=== PATIENT | female | born 1955 | race Caucasian/White ===

== ENCOUNTER 2017-02-18 12:50 | Emergency (ER) | payer BC, MEDICARE ==
[2017-02-18] MEDS ORDERED: Ondansetron 4 MG/2 ML SDV IVPUSH ONE (13:36)
[2017-02-18] MEDS ORDERED: HYDROmorphone 0.5 MG/0.5 ML Syringe IVPUSH ONE ×2 (13:36→16:35)
[2017-02-18] MEDS ORDERED: Sodium Chloride 0.9% 1,000 ML IV ONE ×2 (13:37→16:09)
--- NOTE | 2017-02-18 13:38 | EDM.PDOC ---
ED HPI SEPSIS - General Chief Complaint: Fever Stated Complaint: FEVER/ POSS. POST SURGICAL ISSUES Time Seen by Provider: 02/18/17 13:28 Source of Information: Reports: Patient History Limitations: Reports: No limitations - History of Present Illness INITIAL COMMENTS - FREE TEXT/NARRATIVE: 61 year old female presents for evaluation and treatment a fever and nausea. Patient reports that the fever began last night around 2 AM. She states that she had a fever of 102 at home. Patient did take some Tylenol with Codeine for her chest pain about 3 hours prior to arrival in the ER. Current symptoms include fevers, chills, cough, nausea, pain to the chest, under arms and back. She denies any vomiting, diarrhea, urinary symptoms or abdominal pain. Patient reports a minor nonproductive cough. Patient had a bilateral mastectomy on February 01, with Dr. Cherry in [place]. Reconstruction done with Dr. Kathleen in [place]. Patient currently has DILMA drains in place. Has been draining about 30 cc of serous fluid twice a day. Masectomy was for breast cancer in the left breast. Lymph nodes to the left axilla also taken. Follow-up scheduled for Ira Wu. - Related Data Allergies/ADRs: Allergies Allergy/AdvReac Type Severity Reaction Status Date / Time diphenhydramine Allergy Airway Verified 02/18/17 13:05 [From Benadryl] Tightness Home Meds: Home Meds Escitalopram [Lexapro] 10 mg PO DAILY 02/18/17 [History] Memantine HCl [Namenda] 7 mg PO DAILY 02/18/17 [History] Omeprazole Magnesium [Prilosec Otc] 20 mg PO DAILY 02/18/17 [History] Tylenol Codeine 1 tab PO Q6H PRN 02/18/17 [History] Zolpidem [Ambien] 10 mg PO BEDTIME 02/18/17 [History] atorvaSTATin [Lipitor] 10 mg PO DAILY 02/18/17 [History] buPROPion HCl [Wellbutrin Xl] 300 mg PO DAILY 02/18/17 [History] Past Medical History HEENT History: Reports: Cataract Cardiovascular History: Reports: High cholesterol Gastrointestinal History: Reports: Chronic diarrhea, GERD Musculoskeletal History: Reports: Osteoarthritis Psychiatric History: Reports: Anxiety, Depression Oncologic (Cancer) History: Reports: Breast Other Oncologic History: double mastectomy - Past Surgical History GI Surgical History: Reports: Colonoscopy Female Surgical History: Reports: Other (see below) Other Female Surgeries/Procedures: partial hysterectomy Social & Family History - Tobacco Use Smoking Status *Q: Former Smoker Used Tobacco, but Quit: Yes Month Tobacco Last Used: 2 - Caffeine Use Caffeine Use: Reports: Coffee, Soda - Recreational Drug Use Recreational Drug Use: No ED ROS GENERAL - Review of Systems Review Of Systems: See Below Constitutional: Reports: fever, weakness Respiratory: Reports: Cough. Denies: Sputum GI/Abdominal: Reports: Nausea. Denies: Abdominal pain, Diarrhea, Vomiting : Reports: no symptoms. Denies: dysuria Musculoskeletal: Reports: back pain ED EXAM, SEPSIS - Physical Exam Exam: See Below Exam Limited By: No limitations General Appearance: alert, WD/WN, no apparent distress Throat/Mouth: Normal inspection, Normal lips, Normal voice, No airway compromise Respiratory/Chest: no respiratory distress, lungs clear Cardiovascular: normal peripheral pulses, no murmur, tachycardia Peripheral Pulses: 2+: radial (L), radial (R), posterior tibial (L), posterior tibial (R), dorsalis pedis (L), dorsalis pedis (R) GI/Abdominal: normal bowel sounds, soft, non tender Neurological: alert, oriented, normal cognition Psychiatric: normal affect, normal mood Skin: Dry, Increased warmth, Other (multiple healing incisions from recent surgery, minmal erythema surrounding the incisions; no pus or draininage from the incisions; DILMA drains contain serous fluid no pus appreciated; ) Course - Vital Signs Last Recorded V/S: Last Vital Signs Temp 38.1 C 02/18/17 12:59 Pulse 108 H 02/18/17 13:28 Resp 24 H 02/18/17 13:28 BP 124/45 L 02/18/17 13:28 Pulse Ox - Orders/Labs/Meds Orders: Active Orders 24 hr Category Date Time Status Cardiac Monitoring [RC] . DIRECTED Care 02/18/17 13:36 Active Peripheral IV Care [RC] . DIRECTED Care 02/18/17 13:50 Ordered CULTURE BLOOD [BC] Stat Lab 02/18/17 13:36 Ordered CULTURE BLOOD [BC] Stat Lab 02/18/17 13:36 Ordered CULTURE URINE [RM] Stat Lab 02/18/17 13:36 Uncollected Sodium Chloride 0.9% [Normal Saline] 1,000 ml Med 02/18/17 16:09 Ordered IV ONETIME Sodium Chloride 0.9% [Saline Flush] Med 02/18/17 13:50 Ordered 10 ml FLUSH ASDIRECTED PRN Vancomycin [Vancocin] 1 gm Med 02/18/17 15:29 Ordered Sodium Chloride 0.9% [Normal Saline] 250 ml IV ONETIME Blood Culture x2 Reflex Set [OM.PC] Stat Oth 02/18/17 13:36 Ordered Peripheral IV Insertion Adult [OM.PC] Routine Oth 02/18/17 13:50 Ordered Medication Orders Vancomycin HCl 1 gm/ Sodium (Chloride) 250 mls @ 250 mls/hr IV ONETIME ONE Stop: 02/18/17 16:28 Last Admin: 02/18/17 15:37 Dose: 250 mls/hr Sodium Chloride (Normal Saline) 1,000 mls @ 999 mls/hr IV ONETIME ONE Stop: 02/18/17 17:09 Sodium Chloride (Saline Flush) 10 ml FLUSH ASDIRECTED PRN PRN Reason: Keep Vein Open Last Admin: 02/18/17 14:00 Dose: 10 ml Labs: Laboratory Tests 02/18/17 02/18/17 02/18/17 Range/Units 14:05 14:05 14:05 WBC 41.94 H (3.98-10.04) K/mm3 RBC 3.72 L (3.98-5.22) M/mm3 Hgb 11.6 (11.2-15.7) gm/L Hct 37.2 (34.1-44.9) % MCV 100.0 H (79.4-94.8) fl MCH 31.2 (25.6-32.2) pg MCHC 31.2 L (32.2-35.5) g/dl RDW Std Deviation 48.3 H (36.4-46.3) fL Plt Count 170 L (182-369) K/mm3 MPV 12.4 H (9.4-12.3) fl Neutrophils % (Manual) 82 H (40-60) % Band Neutrophils % 1 (0-10) % Lymphocytes % (Manual) 2 L (20-40) % Atypical Lymphs % 1 % Monocytes % (Manual) 12 H (2-10) % Eosinophils % (Manual) 0 L (0.7-5.8) % Basophils % (Manual) 0 L (0.1-1.2) Myelocytes % 2 Platelet Estimate Adequate Plt Morphology Comment Normal Poikilocytosis 1+ slight Anisocytosis 1+ slight Microcytosis 1+ slight Macrocytosis 1+ slight Tear Drop Cells 1+ slight Ovalocytes 1+ slight RBC Morph Comment Abnormal Sodium 137 (136-145) mEq/L Potassium 4.1 (3.5-5.1) mEq/L Chloride 103 (98-107) mEq/L Carbon Dioxide 25 (21-32) mEq/L Anion Gap 13.1 (5-15) BUN 9 (7-18) mg/dL Creatinine 0.9 (0.55-1.02) mg/dL Est Cr Clr Drug Dosing 54.99 mL/min Estimated GFR (MDRD) > 60 (>60) mL/min BUN/Creatinine Ratio 10.0 L (14-18) Glucose 108 H (74-106) mg/dL Lactic Acid 1.3 (0.4-2.0) mmol/L Calcium 8.4 L (8.5-10.1) mg/dL Total Bilirubin 0.5 (0.2-1.0) mg/dL AST 12 L (15-37) U/L ALT 17 (14-59) U/L Alkaline Phosphatase 75 (46-116) U/L C-Reactive Protein 2.8 H* (<1.0) mg/dL B-Natriuretic Peptide (0-100) pg/mL Total Protein 6.5 (6.4-8.2) g/dl Albumin 3.1 L (3.4-5.0) g/dl Globulin 3.4 gm/dL Albumin/Globulin Ratio 0.9 L (1-2) Urine Color (Yellow) Urine Appearance (Clear) Urine pH (5.0-8.0) Ur Specific [place] (1.005-1.030) Urine Protein (Negative) Urine Glucose (UA) (Negative) Urine Ketones (Negative) Urine Occult Blood (Negative) Urine Nitrite (Negative) Urine Bilirubin (Negative) Urine Urobilinogen (0.2-1.0) Ur Leukocyte Esterase (Negative) Urine RBC (0-5) /hpf Urine WBC (0-5) /hpf Urine WBC Clumps (NOT SEEN) /hpf Ur Epithelial Cells (0-5) /hpf Urine Bacteria (FEW) /hpf Urine Mucus (FEW) /hpf Urine Yeast (NOT SEEN) 02/18/17 02/18/17 Range/Units 14:05 14:50 WBC (3.98-10.04) K/mm3 RBC (3.98-5.22) M/mm3 Hgb (11.2-15.7) gm/L Hct (34.1-44.9) % MCV (79.4-94.8) fl MCH (25.6-32.2) pg MCHC (32.2-35.5) g/dl RDW Std Deviation (36.4-46.3) fL Plt Count (182-369) K/mm3 MPV (9.4-12.3) fl Neutrophils % (Manual) (40-60) % Band Neutrophils % (0-10) % Lymphocytes % (Manual) (20-40) % Atypical Lymphs % % Monocytes % (Manual) (2-10) % Eosinophils % (Manual) (0.7-5.8) % Basophils % (Manual) (0.1-1.2) Myelocytes % Platelet Estimate Plt Morphology Comment Poikilocytosis Anisocytosis Microcytosis Macrocytosis Tear Drop Cells Ovalocytes RBC Morph Comment Sodium (136-145) mEq/L Potassium (3.5-5.1) mEq/L Chloride (98-107) mEq/L Carbon Dioxide (21-32) mEq/L Anion Gap (5-15) BUN (7-18) mg/dL Creatinine (0.55-1.02) mg/dL Est Cr Clr Drug Dosing mL/min Estimated GFR (MDRD) (>60) mL/min BUN/Creatinine Ratio (14-18) Glucose (74-106) mg/dL Lactic Acid (0.4-2.0) mmol/L Calcium (8.5-10.1) mg/dL Total Bilirubin (0.2-1.0) mg/dL AST (15-37) U/L ALT (14-59) U/L Alkaline Phosphatase (46-116) U/L C-Reactive Protein (<1.0) mg/dL B-Natriuretic Peptide 24 (0-100) pg/mL Total Protein (6.4-8.2) g/dl Albumin (3.4-5.0) g/dl Globulin gm/dL Albumin/Globulin Ratio (1-2) Urine Color Yellow (Yellow) Urine Appearance Clear (Clear) Urine pH 8.5 H (5.0-8.0) Ur Specific [place] 1.020 (1.005-1.030) Urine Protein 1+ H (Negative) Urine Glucose (UA) Negative (Negative) Urine Ketones Negative (Negative) Urine Occult Blood Negative (Negative) Urine Nitrite Negative (Negative) Urine Bilirubin Negative (Negative) Urine Urobilinogen 1.0 (0.2-1.0) Ur Leukocyte Esterase Negative (Negative) Urine RBC 0-5 (0-5) /hpf Urine WBC 0-5 (0-5) /hpf Urine WBC Clumps Not seen (NOT SEEN) /hpf Ur Epithelial Cells 0-5 (0-5) /hpf Urine Bacteria Few (FEW) /hpf Urine Mucus Not seen (FEW) /hpf Urine Yeast Not seen (NOT SEEN) Meds: Medications Generic Name Dose Route Start Last Admin Trade Name Freq PRN Reason Stop Dose Admin Vancomycin HCl 1 gm/ Sodium 250 mls @ 250 mls/hr 02/18/17 15:29 02/18/17 15: 37 Chloride IV 02/18/17 16:28 250 mls/hr ONETIME ONE Administration Sodium Chloride 1,000 mls @ 999 mls/hr 02/18/17 16:09 Normal Saline IV 02/18/17 17:09 ONETIME ONE Sodium Chloride 10 ml 02/18/17 13:50 02/18/17 14:00 Saline Flush FLUSH 10 ml ASDIRECTED PRN Administration Keep Vein Open Discontinued Medications Generic Name Dose Route Start Last Admin Trade Name Freq PRN Reason Stop Dose Admin Acetaminophen 650 mg 02/18/17 16:09 Tylenol PO 02/18/17 16:10 NOW ONE Hydromorphone HCl 0.5 mg 02/18/17 13:36 02/18/17 14:17 Dilaudid IVPUSH 02/18/17 13:37 0.5 mg ONETIME ONE Administration Sodium Chloride 1,000 mls @ 999 mls/hr 02/18/17 13:37 02/18/17 14:19 Normal Saline IV 02/18/17 14:37 999 mls/hr ONETIME ONE Administration Ceftriaxone Sodium 2 gm/ 100 mls @ 200 mls/hr 02/18/17 14:30 02/18/17 14:51 Sodium Chloride IV 02/18/17 14:59 200 mls/hr ONETIME ONE Administration Ondansetron HCl 4 mg 02/18/17 13:36 02/18/17 14:15 Zofran IVPUSH 02/18/17 13:37 4 mg ONETIME ONE Administration - Radiology Interpretation Free Text/Narrative:: chest 2 view some slight congestion and pulmonary fibrosis. Reviewed by myself and Dr. Chambers. No acute consolidation appreciated. CT Results Date: 02/18/17 - Re-Assessments/Exams Free Text/Narrative Re-Assessment/Exam: 02/18/17 14:51 Labs returned WBC is elevated at 41.94 with 1% bands, hgb is 11.6 and plts are 170 CRP is elevated at 2.8 BNP is normal at 24 UA has 1+ protein, no leuks or nitrites - urine was sent for culture. Sodium is 137, potassium is 4.1 and chloride is 103. Anion gap is 13.1 and glucose is 108 lactic acid is 1.[address] Chambers. Will start 2grmas rocephin and 1gram vancomycin. Plan is to transfer to [place]. Patient had surgery at [facility] in [place] with Dr. Cherry. Discussed with patient. She agrees to this plan. Pain control is good. No nausea at this time. 02/18/17 16:21 vitals at this time: temp 100.3 b/p 102/36 HR 1900 R: 18 O2 99% on 2L Case discussed with Dr. Brunson, hospitalist at [facility]. Accepts the patient in transfer. Will go by ground ambulance to [facility] in [place]. Departure - Departure Time of Disposition: 16:26 Disposition: DC/Tfer to Acute Hospital 02 Condition: serious Clinical Impression: Sepsis Forms: ED Department Discharge Additional Instructions: Transfer to [facility]. Dr. Brunson accepting. - My Orders Last 24 Hours: My Active Orders 02/18/17 13:36 Cardiac Monitoring [RC] . DIRECTED CULTURE BLOOD [BC] Stat CULTURE BLOOD [BC] Stat CULTURE URINE [RM] Stat Blood Culture x2 Reflex Set [OM.PC] Stat 02/18/17 13:50 Peripheral IV Care [RC] . DIRECTED Sodium Chloride 0.9% [Saline Flush] 10 ml FLUSH ASDIRECTED PRN Peripheral IV Insertion Adult [OM.PC] Routine 02/18/17 15:29 Vancomycin [Vancocin] 1 gm Sodium Chloride 0.9% [Normal Saline] 250 ml IV ONETIME 02/18/17 16:09 Sodium Chloride 0.9% [Normal Saline] 1,000 ml IV ONETIME - Assessment/Plan Last 24 Hours: My Active Orders 02/18/17 13:36 Cardiac Monitoring [RC] . DIRECTED CULTURE BLOOD [BC] Stat CULTURE BLOOD [BC] Stat CULTURE URINE [RM] Stat Blood Culture x2 Reflex Set [OM.PC] Stat 02/18/17 13:50 Peripheral IV Care [RC] . DIRECTED Sodium Chloride 0.9% [Saline Flush] 10 ml FLUSH ASDIRECTED PRN Peripheral IV Insertion Adult [OM.PC] Routine 02/18/17 15:29 Vancomycin [Vancocin] 1 gm Sodium Chloride 0.9% [Normal Saline] 250 ml IV ONETIME 02/18/17 16:09 Sodium Chloride 0.9% [Normal Saline] 1,000 ml IV ONETIME
[2017-02-18] MEDS ORDERED: Sodium Chloride 0.9% 10 ML Syringe FLUSH PRN (13:50)
[2017-02-18] MEDS ORDERED: cefTRIAXone 2 GM in Sodium Chloride 0.9% 100 ML IV ONE (14:30)
--- NOTE | 2017-02-18 15:28 | CR ---
Chest: Two views of the chest were obtained. Comparison: No previous chest x-ray. Heart is enlarged. Pulmonary markings are increased. No alveolar type densities are seen. Surgical clips are seen within the right breast/axillary region. Infusion catheter is seen entering from the left side. Bony structures are within normal limits for the patient's age. Impression: 1. Cardiomegaly with increased pulmonary markings. Pulmonary markings could represent pulmonary vascular congestion although difficult to exclude superimposed bronchitis given that the patient has infectious symptoms. 2. Other incidental findings. Diagnostic code #3
[2017-02-18] MEDS ORDERED: Acetaminophen 325 MG Tab PO ONE (16:09)
[2017-02-18 17:16] VITALS: BP 97/42
== END 2017-02-18 16:45 ==
LOC: JD.ED 12:50
DX: A41.9 Sepsis, unspecified organism (principal); I51.7 Cardiomegaly; Z90.13 Acquired absence of bilateral breasts and nipples; Z88.8 Allergy status to other drugs, medicaments and biological substances; Z79.899 Other long term (current) drug therapy; E78.00 Pure hypercholesterolemia, unspecified; K21.9 Gastro-esophageal reflux disease without esophagitis; M19.90 Unspecified osteoarthritis, unspecified site; F32.9 Major depressive disorder, single episode, unspecified; F41.9 Anxiety disorder, unspecified; Z85.3 Personal history of malignant neoplasm of breast; Z87.891 Personal history of nicotine dependence
CPT/HCPCS: 36415; 71020; 80053; 81001; 83605; 83880; 85025; 86140; 87040; 87086; 96365; 96367; 96375; 96376; 99285; A9270; J0696; J1170; J2405; J3370; J7030; J7040; J7050; 99284

== ENCOUNTER 2017-03-14 18:55 | Emergency (ER) | payer BC, MEDICARE ==
[2017-03-14 19:11] VITALS: BP 107/41
--- NOTE | 2017-03-14 19:38 | EDM.PDOC ---
ED HPI GENERAL MEDICAL PROBLEM - General Chief Complaint: Fever Stated Complaint: FEVER HEADACHE POSS INFECTION Time Seen by Provider: 03/14/17 19:12 Source of Information: Reports: Patient, Family (), Old Records, RN Notes Reviewed History Limitations: Reports: No Limitations - History of Present Illness INITIAL COMMENTS - FREE TEXT/NARRATIVE: The patient was diagnosed with left breast cancer in November 2016. Due to a strong family history of breast cancer, she underwent bilateral radical mastectomy 02/01/[address] Cherry at [facility] on 02/01/2017, followed by placement of bilateral expanders per Dr. Kathleen. She also received a left Port- A-Cath. The patient was seen in this ED 02/10/2017 for fever, nausea and pain to her left chest. She was found to have a WBC count substantially elevated at 41.94, but with only 1% bandemia. Her platelets were depressed at 170K. Her CMP was normal. Her CRP was modestly elevated at 2.8. Her lactic acid level was normal. Her urinalysis was normal. Her chest radiograph demonstrated cardiomegaly with increased pulmonary vascular markings, suggestive of CHF vs. bronchitis. the patient was treated with Rocephin and vancomycin, then transferred to [facility]. The patient's states that she was hospitalized for 12 days on IV antibiotics in order to treat an infected left hydrogen treater, which was removed. Her WBC count also apparently went up to about 68,000 despite antibiotics. She underwent a bone marrow biopsy to evaluate for CML - the patient states that they do not have those results back yet. The patient is no longer on antibiotics. She has not yet started chemotherapy. She now presents with nausea, lightheadedness, and a headache since 02:00 this morning. She states that these symptoms are recurrent, ever since her mastectomy on 02/01/2017. Her lightheadedness is only present when she is upright. She describes her headache as a pressure sensation in her face and in her posterior head. She also reports that she had a temperature of 99.9 at 02: 00, but that it went up to 101.1 at 13:00 this afternoon, as taken by a digital oral thermometer. She states that she took 650 mg Tylenol around 16:30. She also reports a dry cough and rhinorrhea since last night. She denies having left or right chest pain. Here in the ED, she is afebrile at 98.4. The patient's PCP is Dr. Cristina Wolf. Her Oncologist is Dr. Boles. Treatments ENERGY CONSERVATION REPRESENTATIVE: Reports: Acetaminophen Other Treatments ENERGY CONSERVATION REPRESENTATIVE: tylenol 650 mg one hour ago Headache Pain Score (Numeric/FACES): 2 - Related Data Allergies Allergy/AdvReac Type Severity Reaction Status Date / Time diphenhydramine Allergy Airway Verified 03/14/17 19:07 [From Benadryl] Tightness Home Meds: Home Meds Escitalopram [Lexapro] 10 mg PO DAILY 02/18/17 [History] Memantine HCl [Namenda] 7 mg PO DAILY 02/18/17 [History] Omeprazole Magnesium [Prilosec Otc] 20 mg PO DAILY 02/18/17 [History] Tylenol Codeine 1 tab PO Q6H PRN 02/18/17 [History] Zolpidem [Ambien] 10 mg PO BEDTIME 02/18/17 [History] atorvaSTATin [Lipitor] 10 mg PO DAILY 02/18/17 [History] buPROPion HCl [Wellbutrin Xl] 300 mg PO DAILY 02/18/17 [History] Past Medical History Cardiovascular History: Reports: High Cholesterol Gastrointestinal History: Reports: GERD Psychiatric History: Reports: Anxiety, Depression Oncologic (Cancer) History: Reports: Breast (left) - Past Surgical History HEENT Surgical History: Reports: Oral Surgery (All teeth extracted), Tonsillectomy Cardiovascular Surgical History: Reports: Other (See Below) (Left Port-A-Cath placed 02/01/2017) GI Surgical History: Reports: Appendectomy, Cholecystectomy Female Surgical History: Reports: Hysterectomy, Mastectomy (bilateral, 2016, + bilateral expanders. 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 Denies: Shortness of Breath Cardiovascular: Reports: No Symptoms. Denies: Chest Pain, Palpitations Endocrine: Reports: No Symptoms GI/Abdominal: Reports: Nausea (as per the HPI). Denies: Abdominal Pain, Constipation, Diarrhea, Vomiting : Reports: No Symptoms Musculoskeletal: Reports: No Symptoms Skin: Reports: No Symptoms Neurological: Reports: Dizziness (Lightheaded, as per the HPI) Psychiatric: Reports: No Symptoms Hematologic/Lymphatic: Reports: No Symptoms Immunologic: Reports: No Symptoms ED EXAM, GENERAL - Physical Exam Exam: See Below Exam Limited By: No Limitations General Appearance: Alert, WD/WN, No Apparent Distress, Anxious Eye Exam: Bilateral Eye: Normal Inspection Ears: Normal External Exam, Hearing Grossly Normal Ear Exam: Bilateral Ear: Auricle Normal Nose: Normal Inspection, No Blood Throat/Mouth: Normal Inspection, Normal Lips, Normal Voice, No Airway Compromise Head: Atraumatic, Normocephalic Neck: Normal Inspection, Full Range of Motion Respiratory/Chest: No Respiratory Distress, Lungs Clear, Normal Breath Sounds, No Accessory Muscle Use Cardiovascular: Normal Peripheral Pulses, Regular Rate, Rhythm, No Gallop, No JVD, No Murmur, No Rub Peripheral Pulses: 4+: Radial (L), Radial (R) GI/Abdominal: Normal Bowel Sounds, Soft, Non-Tender, No Organomegaly, No Distention, No Abnormal Bruit, No Mass (Female) Exam: Deferred Rectal (Female) Exam: Deferred Back Exam: Normal Inspection, Full Range of Motion, NT Extremities: Normal Inspection, Normal Range of Motion, No Pedal Edema, Normal Capillary Refill Neurological: Alert, Oriented, Normal Cognition, No Motor/Sensory Deficits Psychiatric: Normal Affect, Anxious Skin Exam: Warm, Dry, Intact, Normal Color, No Rash Lymphatic: No Adenopathy EKG INTERPRETATION EKG Date: 03/14/17 Time: 19:45 Rhythm: NSR Rate (beats/min): 98 [place]: LAD-left axis deviation P-wave: present QRS: normal ST-T: normal QT: normal Comparison: NA - no prior EKG Course - Vital Signs Last Recorded V/S: Last Vital Signs Temp 36.9 C 03/14/17 19:07 Pulse 100 03/14/17 19:07 Resp BP 107/41 L 03/14/17 19:07 Pulse Ox 96 03/14/17 19:07 Orthostatic Blood Pressure [ 95/41 Standing] Orthostatic Blood Pressure [ 106/38 Sitting] Orthostatic Blood Pressure [ 108/52 Supine] - Orders/Labs/Meds Orders: Active Orders 24 hr Category Date Time Status EKG Documentation Completion [RC] STAT Care 03/14/17 19:35 Active Orthostatic Vital Signs [RC] STAT Care 03/14/17 19:34 Active Orthostatic Vital Signs [RC] STAT Care 03/14/17 20:16 Active Chest 2V [CR] Stat Exams 03/14/17 19:34 Taken CULTURE BLOOD [BC] Stat Lab 03/14/17 20:35 Received CULTURE BLOOD [BC] Stat Lab 03/14/17 20:45 Received Labs: Laboratory Tests 03/14/17 03/14/17 03/14/17 Range/Units 19:45 19:45 19:45 WBC 47.07 H (3.98-10.04) K/mm3 RBC 3.71 L (3.98-5.22) M/mm3 Hgb 11.4 (11.2-15.7) gm/L Hct 37.5 (34.1-44.9) % MCV 101.1 H (79.4-94.8) fl MCH 30.7 (25.6-32.2) pg MCHC 30.4 L (32.2-35.5) g/dl RDW Std Deviation 50.5 H (36.4-46.3) fL Plt Count 168 L (182-369) K/mm3 MPV 12.5 H (9.4-12.3) fl Neutrophils % (Manual) 72 H (40-60) % Band Neutrophils % 0 (0-10) % Lymphocytes % (Manual) 5 L (20-40) % Atypical Lymphs % 0 % Monocytes % (Manual) 19 H (2-10) % Eosinophils % (Manual) 1 (0.7-5.8) % Basophils % (Manual) 0 L (0.1-1.2) Myelocytes % 3 Platelet Estimate Adequate Plt Morphology Comment Normal RBC Morph Comment Normal PT 11.1 (8.0-13.0) SECONDS INR 1.02 APTT 29 (22-36) SECONDS D-Dimer, Quantitative 0.56 (0.19-0.59) mg/L Sodium 140 (136-145) mEq/L Potassium 3.8 (3.5-5.1) mEq/L Chloride 104 (98-107) mEq/L Carbon Dioxide 27 (21-32) mEq/L Anion Gap 12.8 (5-15) BUN 11 (7-18) mg/dL Creatinine 1.1 H (0.55-1.02) mg/dL Est Cr Clr Drug Dosing 44.99 mL/min Estimated GFR (MDRD) 51 (>60) mL/min BUN/Creatinine Ratio 10.0 L (14-18) Glucose 98 (74-106) mg/dL Calcium 8.5 (8.5-10.1) mg/dL Magnesium 1.7 L (1.8-2.4) mg/dl Total Bilirubin 0.3 (0.2-1.0) mg/dL AST 13 L (15-37) U/L ALT 29 (14-59) U/L Alkaline Phosphatase 76 (46-116) U/L Troponin I < 0.017 (0.00-0.056) ng/mL C-Reactive Protein 3.7 H* (<1.0) mg/dL Total Protein 6.9 (6.4-8.2) g/dl Albumin 3.2 L (3.4-5.0) g/dl Globulin 3.7 gm/dL Albumin/Globulin Ratio 0.9 L (1-2) Urine Color (Yellow) Urine Appearance (Clear) Urine pH (5.0-8.0) Ur Specific [place] (1.005-1.030) Urine Protein (Negative) Urine Glucose (UA) (Negative) Urine Ketones (Negative) Urine Occult Blood (Negative) Urine Nitrite (Negative) Urine Bilirubin (Negative) Urine Urobilinogen (0.2-1.0) Ur Leukocyte Esterase (Negative) Urine RBC (0-5) /hpf Urine WBC (0-5) /hpf Ur Epithelial Cells Ur Squamous Epith Cells (0-5) /hpf Urine Bacteria (FEW) /hpf Urine Mucus (FEW) /hpf 03/14/17 Range/Units 20:23 WBC (3.98-10.04) K/mm3 RBC (3.98-5.22) M/mm3 Hgb (11.2-15.7) gm/L Hct (34.1-44.9) % MCV (79.4-94.8) fl MCH (25.6-32.2) pg MCHC (32.2-35.5) g/dl RDW Std Deviation (36.4-46.3) fL Plt Count (182-369) K/mm3 MPV (9.4-12.3) fl Neutrophils % (Manual) (40-60) % Band Neutrophils % (0-10) % Lymphocytes % (Manual) (20-40) % Atypical Lymphs % % Monocytes % (Manual) (2-10) % Eosinophils % (Manual) (0.7-5.8) % Basophils % (Manual) (0.1-1.2) Myelocytes % Platelet Estimate Plt Morphology Comment RBC Morph Comment PT (8.0-13.0) SECONDS INR APTT (22-36) SECONDS D-Dimer, Quantitative (0.19-0.59) mg/L Sodium (136-145) mEq/L Potassium (3.5-5.1) mEq/L Chloride (98-107) mEq/L Carbon Dioxide (21-32) mEq/L Anion Gap (5-15) BUN (7-18) mg/dL Creatinine (0.55-1.02) mg/dL Est Cr Clr Drug Dosing mL/min Estimated GFR (MDRD) (>60) mL/min BUN/Creatinine Ratio (14-18) Glucose (74-106) mg/dL Calcium (8.5-10.1) mg/dL Magnesium (1.8-2.4) mg/dl Total Bilirubin (0.2-1.0) mg/dL AST (15-37) U/L ALT (14-59) U/L Alkaline Phosphatase (46-116) U/L Troponin I (0.00-0.056) ng/mL C-Reactive Protein (<1.0) mg/dL Total Protein (6.4-8.2) g/dl Albumin (3.4-5.0) g/dl Globulin gm/dL Albumin/Globulin Ratio (1-2) Urine Color Yellow (Yellow) Urine Appearance Clear (Clear) Urine pH 5.5 (5.0-8.0) Ur Specific [place] > or = 1.030 (1.005-1.030) Urine Protein Trace H (Negative) Urine Glucose (UA) Negative (Negative) Urine Ketones Negative (Negative) Urine Occult Blood Negative (Negative) Urine Nitrite Negative (Negative) Urine Bilirubin 1+ H (Negative) Urine Urobilinogen 0.2 (0.2-1.0) Ur Leukocyte Esterase Trace H (Negative) Urine RBC Not seen (0-5) /hpf Urine WBC 5-10 H (0-5) /hpf Ur Epithelial Cells Not Reportable Ur Squamous Epith Cells 0-5 (0-5) /hpf Urine Bacteria Few (FEW) /hpf Urine Mucus Few (FEW) /hpf Meds: Medications Discontinued Medications Generic Name Dose Route Start Last Admin Trade Name Freq PRN Reason Stop Dose Admin Sodium Chloride 1,000 mls @ 150 mls/hr 03/14/17 19:45 Normal Saline IV ASDIRECTED LANA Sodium Chloride 1,000 mls @ 999 mls/hr 03/14/17 20:16 03/14/17 20:56 Normal Saline IV 03/14/17 21:16 999 mls/hr ONETIME ONE Administration Lidocaine/Tetracaine Confirm 03/14/17 20:09 03/14/17 20:53 Let Soln Administered 03/14/17 20:10 Not Given Dose 1 ml .ROUTE .STK-MED ONE Lidocaine/Tetracaine 1 ml 03/14/17 20:25 03/14/17 20:53 Let Soln TOP 03/14/17 20:26 1 ml ONETIME ONE Administration - Radiology Interpretation Free Text/Narrative:: Two-view chest radiograph reviewed. There is cardiomegaly. Mild pulmonary vascular congestion. No pleural effusions. No focal infiltrate. No pneumothorax. Left Port-A-Cath noted. Right breast hydrogen treater noted. Formal read per the Radiologist pending. CT of the head without contrast is read by Dr. Vega as: 1. Incidental sinus findings. 2. No acute intracranial abnormality is identified on noncontrast head CT study. - Re-Assessments/Exams Free Text/Narrative Re-Assessment/Exam: 03/14/17 20:15 The patient's diastolic blood pressure dropped 11 mm Hg from supine to standing. This constitutes orthostasis. I will order a 1 L normal saline bolus , then recheck her orthostatics. 03/14/17 22:31 Following 1 L normal saline, the patient is no longer orthostatic. 03/14/17 22:40 Test results discussed with the patient and her . Today's workup is remarkable for an elevated WBC count of 47.07, however, the patient recently underwent a bone marrow biopsy to evaluate for possible CML. She has 0% bandemia, and her CRP is only mildly elevated at 3.7, suggesting more of a viral illness, as opposed to a bacterial infection. Additionally, no focal site for bacterial infection was identified. I believe the patient can safely be discharged home, and she agrees. She was asking if I can prescribe something else for her nausea, but admits that she is not taking her Zofran as prescribed. I am recommending that she do so prior to switching to a different antiemetic. Departure - Departure Time of Disposition: 22:42 Disposition: Home, Self-Care 01 Condition: fair Clinical Impression: Nausea, Lightheaded, Orthostatic dizziness, Headache, Fever, Leukocytosis - Discharge Information Referrals: Cristina Wolf MD [Ordering Only Provider] - Amairani Boles MD [Ordering Only Provider] - Forms: ED Department Discharge Additional Instructions: You were seen in the emergency room for nausea, dizziness, headache, fever, cough, and runny nose. Workup in the ER included blood work, blood cultures, a urinalysis, an ECG, a chest x-ray, a CT scan of your head, and positional blood pressure checks. Your workup was remarkable for your WBC count being elevated at 47.07 and your platelets mildly depressed at 168K. your CRP is mildly elevated at 3.7. You were found to be orthostatic, relieved after he received 1 L of IV fluid. You do not have pneumonia. You do not have a urinary tract infection. You have not had a heart attack. You do not have a blood clot in your lungs. The CT scan of your head was normal. You may have a viral URI contribute to your symptoms. We recommend you followup with your PCP, Dr. Wolf, this week. If any other problems, please do not hesitate to return to the ER. - My Orders Last 24 Hours: My Active Orders 03/14/17 19:34 Orthostatic Vital Signs [RC] STAT Chest 2V [CR] Stat 03/14/17 19:35 EKG Documentation Completion [RC] STAT 03/14/17 20:16 Orthostatic Vital Signs [RC] STAT 03/14/17 20:35 CULTURE BLOOD [BC] Stat 03/14/17 20:45 CULTURE BLOOD [BC] Stat - Assessment/Plan Last 24 Hours: My Active Orders 03/14/17 19:34 Orthostatic Vital Signs [RC] STAT Chest 2V [CR] Stat 03/14/17 19:35 EKG Documentation Completion [RC] STAT 03/14/17 20:16 Orthostatic Vital Signs [RC] STAT 03/14/17 20:35 CULTURE BLOOD [BC] Stat 03/14/17 20:45 CULTURE BLOOD [BC] Stat
[2017-03-14] MEDS ORDERED: Sodium Chloride 0.9% 1,000 ML IV SCH (19:45)
[2017-03-14] MEDS ORDERED: Lidocaine/EPINEPHrine/Tetracaine Soln 1 ML ONE (20:09)
--- NOTE | 2017-03-14 20:12 | CT ---
Head CT Technique: Multiple axial sections through the brain were obtained. Intravenous contrast was not utilized. Comparison: No previous intracranial imaging is available. Findings: Ventricles along with basal cisterns and sulci over the convexities appear within normal limits for the patient's age. No abnormal parenchymal densities are appreciated. No evidence of intracranial hemorrhage. No midline shift or mass effect is seen. Bone window settings were reviewed which shows no discrete calvarial abnormality. Mild mucosal thickening is noted within the frontal sinuses. Impression: 1. Incidental sinus findings. 2. No acute intracranial abnormality is identified on noncontrast head CT study. Diagnostic code #2
[2017-03-14] MEDS ORDERED: Sodium Chloride 0.9% 1,000 ML IV ONE (20:16)
[2017-03-14] MEDS ORDERED: Lidocaine/EPINEPHrine/Tetracaine Soln 1 ML TOP ONE (20:25)
--- NOTE | 2017-03-15 11:41 | CR ---
Chest: Two views of the chest were obtained. Comparison: Previous chest x-ray of 02/18/17. Heart is enlarged. Chronic-appearing pulmonary vascular congestion is seen. Focal density noted within the left mid lung which is stable from prior exam and this is likely chronic. Infusion catheter is seen. Surgical clips are seen within the right axillary region. Bony structures appear within normal limits for the patient's age. Impression: 1. Enlarged heart with chronic-appearing pulmonary vascular congestion from prior exam. 2. Focal density within left mid lung which is fairly stable from prior study most likely chronic. 3. Other incidental findings. Diagnostic code #3
== END 2017-03-14 23:00 | disposition home or self-care (01) ==
LOC: JD.ED 18:55
DX: R42 Dizziness and giddiness (principal); R11.0 Nausea; R51 Headache; D72.829 Elevated white blood cell count, unspecified; E78.00 Pure hypercholesterolemia, unspecified; K21.9 Gastro-esophageal reflux disease without esophagitis; F41.9 Anxiety disorder, unspecified; F32.9 Major depressive disorder, single episode, unspecified; Z98.818 Other dental procedure status; Z88.8 Allergy status to other drugs, medicaments and biological substances; Z79.899 Other long term (current) drug therapy; Z90.49 Acquired absence of other specified parts of digestive tract; Z90.710 Acquired absence of both cervix and uterus; Z98.890 Other specified postprocedural states; Z87.891 Personal history of nicotine dependence
CPT/HCPCS: 36415; 70450; 71020; 80053; 81001; 83735; 84484; 85025; 85379; 85610; 85730; 86140; 87040; 93005; 96360; 99285; A9270; J7040; P9612; 87077; 87186; 99283

== ENCOUNTER 2017-05-05 08:51 | Emergency (ER) | payer BC, MEDICARE ==
[2017-05-05] MEDS ORDERED: Ondansetron 8 MG in Sodium Chloride 0.9% 50 ML IV ONE (09:17)
[2017-05-05] MEDS ORDERED: HYDROmorphone 1 MG/ML Syringe IVPUSH ONE (09:18)
[2017-05-05] MEDS ORDERED: Ondansetron 4 MG/2 ML SDV ONE (09:27)
[2017-05-05] MEDS ORDERED: Sodium Chloride 0.9% 2,000 ML IV SCH (09:30)
--- NOTE | 2017-05-05 10:57 | EDM.PDOC ---
ED HPI GENERAL MEDICAL PROBLEM - General Chief Complaint: Gastrointestinal Problem Stated Complaint: DEHYDRATED Time Seen by Provider: 05/05/17 09:03 Source of Information: Reports: Patient, Family History Limitations: Reports: No Limitations - History of Present Illness INITIAL COMMENTS - FREE TEXT/NARRATIVE: The patient presents with nausea, vomiting, diarrhea and lower abdominal pain. She has a history of breast cancer and possibly CML. She got chemotherapy last Tuesday 8 days ago. Yesterday she started with nausea, vomiting, diarrhea and lower abdominal cramping. She denies fever. She does have chills. She has a mild cough. She feels short of breath. She is very weak and fatigued. She was to get fluid today at the infusion center at [place] but when her called they told her to come here. She has no dysuria. Onset: Gradual Duration: Day(s): (Yesterday) Location: Reports: Abdomen Quality: Reports: Other (cramping) Severity: Moderate Improves with: Reports: None Worsens with: Reports: None Context: Reports: Activity Associated Symptoms: Reports: Cough, Fever/Chills, Loss of Appetite, Nausea/ Vomiting. Denies: Chest Pain Abdominal Pain Score (Numeric/FACES): 6 - Related Data Allergies Allergy/AdvReac Type Severity Reaction Status Date / Time diphenhydramine Allergy Airway Verified 05/05/17 09:04 [From Benadryl] Tightness Home Meds: Home Meds Escitalopram [Lexapro] 10 mg PO DAILY 02/18/17 [History] Memantine HCl [Namenda] 7 mg PO DAILY 02/18/17 [History] Omeprazole Magnesium [Prilosec Otc] 20 mg PO DAILY 02/18/17 [History] Tylenol Codeine 1 tab PO Q6H PRN 02/18/17 [History] Zolpidem [Ambien] 10 mg PO BEDTIME 02/18/17 [History] atorvaSTATin [Lipitor] 10 mg PO DAILY 02/18/17 [History] buPROPion HCl [Wellbutrin Xl] 300 mg PO DAILY 02/18/17 [History] Past Medical History HEENT History: Reports: Impaired Vision Cardiovascular History: Reports: High Cholesterol Respiratory History: Reports: SOB Gastrointestinal History: Reports: GERD Musculoskeletal History: Reports: Osteoarthritis Psychiatric History: Reports: Anxiety, Depression Oncologic (Cancer) History: Reports: Breast, Other (See Below) Other Oncologic History: "Checking me for CML" - Infectious Disease History Infectious Disease History: Reports: Chicken Pox, Mumps - Past Surgical History HEENT Surgical History: Reports: Oral Surgery, Tonsillectomy Other Cardiovascular Surgeries/Procedures: "attempted to place stent, but then didn't need to once they were in there." GI Surgical History: Reports: Appendectomy, Cholecystectomy Female Surgical History: Reports: Hysterectomy, Mastectomy Oncologic Surgical History: Reports: Mastectomy Social & Family History - Family History Family Medical History: Noncontributory - Tobacco Use Smoking Status *Q: Former Smoker Years of Tobacco use: 43 Packs/Tins Daily: 1 Used Tobacco, but Quit: Yes Month Tobacco Last Used: 2013 - Caffeine Use Caffeine Use: Reports: Coffee, Soda - Recreational Drug Use Recreational Drug Use: No - Living Situation & Occupation Living situation: Reports: , with Spouse 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 Denies: Chest Pain Endocrine: Reports: Fatigue GI/Abdominal: Reports: Abdominal Pain, Diarrhea, Nausea, Vomiting : Reports: No Symptoms Musculoskeletal: Reports: No Symptoms Skin: Reports: No Symptoms Neurological: Reports: Dizziness ED EXAM, GI/ABD - Physical Exam Exam: See Below Exam Limited By: No Limitations General Appearance: Alert, No Apparent Distress Ears: Normal External Exam Nose: Normal Inspection Head: Atraumatic, Normocephalic Neck: Normal Inspection Respiratory/Chest: No Respiratory Distress, Lungs Clear, Normal Breath Sounds Cardiovascular: Regular Rate, Rhythm, No Edema, No Murmur GI/Abdominal: Soft, No Organomegaly, No Mass, Tenderness (Mild pain upon palpation) Course - Vital Signs Last Recorded V/S: Last Vital Signs Temp 97.4 F 05/05/17 08:58 Pulse 93 05/05/17 08:58 Resp 28 H 05/05/17 08:58 BP 88/40 L 05/05/17 08:58 Pulse Ox 86 L 05/05/17 10:19 - Orders/Labs/Meds Orders: Active Orders 24 hr Category Date Time Status Cardiac Monitoring [RC] . DIRECTED Care 05/05/17 09:17 Active Implanted Port Access [RC] ONETIME Care 05/05/17 09:17 Active PATIENT RETYPE [BBK] Stat Lab 05/05/17 10:05 Results RED BLOOD CELLS LP [BBK] Stat Lab 05/05/17 10:05 Results TYPE AND SCREEN [BBK] Stat Lab 05/05/17 10:05 Results Sodium Chloride 0.9% [Normal Saline] 2,000 ml Med 05/05/17 09:30 Active IV .BOLUS ED Antiemetic Medication Reflex [OM.PC] Stat Oth 05/05/17 09:17 Ordered Transfuse PRBC [Transfuse Red Blood Cells] [COMM] Stat Oth 05/05/17 10:41 Ordered Medication Orders Sodium Chloride (Normal Saline) 2,000 mls @ 1,000 mls/hr IV .BOLUS LANA Last Admin: 05/05/17 10:05 Dose: 1,000 mls/hr Labs: Laboratory Tests 05/05/17 05/05/17 05/05/17 Range/Units 10:05 10:05 10:05 WBC 0.61 L* (3.98-10.04) K/mm3 RBC 2.00 L (3.98-5.22) M/mm3 Hgb 5.9 L* (11.2-15.7) gm/L Hct 19.1 L (34.1-44.9) % MCV 95.5 H (79.4-94.8) fl MCH 29.5 (25.6-32.2) pg MCHC 30.9 L (32.2-35.5) g/dl RDW Std Deviation 46.0 (36.4-46.3) fL Plt Count 42 L (182-369) K/mm3 MPV 12.4 H (9.4-12.3) fl Neut % (Auto) 31.2 L (34.0-71.1) % Lymph % (Auto) 32.8 (19.3-51.7) % [place] % (Auto) 24.6 H (4.7-12.5) % Eos % (Auto) 0 L (0.7-5.8) Baso % (Auto) 1.6 H (0.1-1.2) % Neut # (Auto) 0.19 L (1.56-6.13) K/mm3 Lymph # (Auto) 0.20 L (1.18-3.74) K/mm3 [place] # (Auto) 0.15 L (0.24-0.36) K/mm3 Eos # (Auto) 0.00 L (0.04-0.36) K/mm3 Baso # (Auto) 0.01 (0.01-0.08) K/mm3 Manual Slide Review Abnormal smear Sodium 136 (136-145) mEq/L Potassium 3.9 (3.5-5.1) mEq/L Chloride 102 (98-107) mEq/L Carbon Dioxide 26 (21-32) mEq/L Anion Gap 11.9 (5-15) BUN 7 (7-18) mg/dL Creatinine 0.7 (0.55-1.02) mg/dL Est Cr Clr Drug Dosing 69.81 mL/min Estimated GFR (MDRD) > 60 (>60) mL/min BUN/Creatinine Ratio 10.0 L (14-18) Glucose 94 (80-115) mg/dL Calcium 8.2 L (8.5-10.1) mg/dL Total Bilirubin 0.7 (0.2-1.0) mg/dL AST 9 L (15-37) U/L ALT 12 L (14-59) U/L Alkaline Phosphatase 70 (46-116) U/L Total Protein 5.4 L (6.4-8.2) g/dl Albumin 2.4 L (3.4-5.0) g/dl Globulin 3.0 gm/dL Albumin/Globulin Ratio 0.8 L (1-2) Lipase 70 L (73-393) U/L Urine Color (Yellow) Urine Appearance (Clear) Urine pH (5.0-8.0) Ur Specific [place] (1.005-1.030) Urine Protein (Negative) Urine Glucose (UA) (Negative) Urine Ketones (Negative) Urine Occult Blood (Negative) Urine Nitrite (Negative) Urine Bilirubin (Negative) Urine Urobilinogen (0.2-1.0) Ur Leukocyte Esterase (Negative) Urine RBC (0-5) /hpf Urine WBC (0-5) /hpf Ur Epithelial Cells (0-5) /hpf Urine Bacteria (FEW) /hpf Hyaline Casts (0-5) /lpf Urine Mucus (FEW) /hpf Blood Type A POSITIVE Gel Antibody Screen Negative Crossmatch See Detail 05/05/17 Range/Units 10:30 WBC (3.98-10.04) K/mm3 RBC (3.98-5.22) M/mm3 Hgb (11.2-15.7) gm/L Hct (34.1-44.9) % MCV (79.4-94.8) fl MCH (25.6-32.2) pg MCHC (32.2-35.5) g/dl RDW Std Deviation (36.4-46.3) fL Plt Count (182-369) K/mm3 MPV (9.4-12.3) fl Neut % (Auto) (34.0-71.1) % Lymph % (Auto) (19.3-51.7) % [place] % (Auto) (4.7-12.5) % Eos % (Auto) (0.7-5.8) Baso % (Auto) (0.1-1.2) % Neut # (Auto) (1.56-6.13) K/mm3 Lymph # (Auto) (1.18-3.74) K/mm3 [place] # (Auto) (0.24-0.36) K/mm3 Eos # (Auto) (0.04-0.36) K/mm3 Baso # (Auto) (0.01-0.08) K/mm3 Manual Slide Review Sodium (136-145) mEq/L Potassium (3.5-5.1) mEq/L Chloride (98-107) mEq/L Carbon Dioxide (21-32) mEq/L Anion Gap (5-15) BUN (7-18) mg/dL Creatinine (0.55-1.02) mg/dL Est Cr Clr Drug Dosing mL/min Estimated GFR (MDRD) (>60) mL/min BUN/Creatinine Ratio (14-18) Glucose (80-115) mg/dL Calcium (8.5-10.1) mg/dL Total Bilirubin (0.2-1.0) mg/dL AST (15-37) U/L ALT (14-59) U/L Alkaline Phosphatase (46-116) U/L Total Protein (6.4-8.2) g/dl Albumin (3.4-5.0) g/dl Globulin gm/dL Albumin/Globulin Ratio (1-2) Lipase (73-393) U/L Urine Color Irene H (Yellow) Urine Appearance Clear (Clear) Urine pH 6.5 (5.0-8.0) Ur Specific [place] 1.025 (1.005-1.030) Urine Protein 1+ H (Negative) Urine Glucose (UA) Negative (Negative) Urine Ketones Trace H (Negative) Urine Occult Blood 2+ H (Negative) Urine Nitrite Negative (Negative) Urine Bilirubin 1+ H (Negative) Urine Urobilinogen 0.2 (0.2-1.0) Ur Leukocyte Esterase Negative (Negative) Urine RBC 10-20 H (0-5) /hpf Urine WBC 0-5 (0-5) /hpf Ur Epithelial Cells 5-10 H (0-5) /hpf Urine Bacteria Few (FEW) /hpf Hyaline Casts 0-5 (0-5) /lpf Urine Mucus Many H (FEW) /hpf Blood Type Gel Antibody Screen Crossmatch Meds: Medications Generic Name Dose Route Start Last Admin Trade Name Queta PRN Reason Stop Dose Admin Sodium Chloride 2,000 mls @ 1,000 mls/hr 05/05/17 09:30 05/05/17 10:05 Normal Saline IV 1,000 mls/hr .BOLUS LANA Administration Discontinued Medications Generic Name Dose Route Start Last Admin Trade Name Queta PRN Reason Stop Dose Admin Hydromorphone HCl 1 mg 05/05/17 09:18 05/05/17 10:06 Dilaudid IVPUSH 05/05/17 09:19 1 mg ONETIME ONE Administration Ondansetron HCl 8 mg/ Sodium 54 mls @ 100 mls/hr 05/05/17 09:17 05/05/17 10: 15 Chloride IV 05/05/17 09:49 100 mls/hr ONETIME ONE Administration Ondansetron HCl Confirm 05/05/17 09:27 05/05/17 10:17 Zofran Administered 05/05/17 09:28 Not Given Dose 8 mg .ROUTE .STK-MED ONE - Re-Assessments/Exams Free Text/Narrative Re-Assessment/Exam: 05/05/17 10:58 I ordered an IV NS 2L bolus, zofran 4mg IV, dilaudid 1mg IV, labs and UA. 05/05/17 12:10 Her WBC was low at 0.61. I put her on neutropenic precautions. Her Hgb was low at 5.9. I ordered 2 units of PRBCs. Her platelets were low at 42. Her CMP looks good. Her UA shows no UTI. I called Dr Boles her oncologist at [facility] and she wanted us to give her the blood and she wanted her admitted to [facility] in [place]. I talked with Dr Brunson and he accepted the patient. Departure - Departure Time of Disposition: 12:20 Disposition: DC/[facility] to [facility] 02 Condition: Good Clinical Impression: Lightheaded, Pancytopenia due to chemotherapy Nausea & vomiting Qualifiers: Vomiting type: unspecified Vomiting Intractability: non-intractable Qualified Code(s): R11.2 - Nausea with vomiting, unspecified Diarrhea Qualifiers: Diarrhea type: unspecified type Qualified Code(s): R19.7 - Diarrhea, unspecified Abdominal pain Qualifiers: Abdominal location: lower abdomen, unspecified Qualified Code(s): R10.30 - Lower abdominal pain, unspecified Breast cancer Qualifiers: Breast location: unspecified site of breast Estrogen receptor status: unspecified Patient sex: female Laterality: left Qualified Code(s): C50.912 - Malignant neoplasm of unspecified site of left female breast - Discharge Information Forms: ED Department Discharge - My Orders Last 24 Hours: My Active Orders 05/05/17 09:17 Cardiac Monitoring [RC] . DIRECTED Implanted Port Access [RC] ONETIME ED Antiemetic Medication Reflex [OM.PC] Stat 05/05/17 09:30 Sodium Chloride 0.9% [Normal Saline] 2,000 ml IV .BOLUS 05/05/17 10:05 PATIENT RETYPE [BBK] Stat RED BLOOD CELLS LP [BBK] Stat TYPE AND SCREEN [BBK] Stat 05/05/17 10:41 Transfuse PRBC [Transfuse Red Blood Cells] [COMM] Stat - Assessment/Plan Last 24 Hours: My Active Orders 05/05/17 09:17 Cardiac Monitoring [RC] . DIRECTED Implanted Port Access [RC] ONETIME ED Antiemetic Medication Reflex [OM.PC] Stat 05/05/17 09:30 Sodium Chloride 0.9% [Normal Saline] 2,000 ml IV .BOLUS 05/05/17 10:05 PATIENT RETYPE [BBK] Stat RED BLOOD CELLS LP [BBK] Stat TYPE AND SCREEN [BBK] Stat 05/05/17 10:41 Transfuse PRBC [Transfuse Red Blood Cells] [COMM] Stat
[2017-05-05 12:42] VITALS: BP 96/50
== END 2017-05-05 13:05 ==
LOC: JD.ED 08:51
DX: R42 Dizziness and giddiness (principal); D61.811 Other drug-induced pancytopenia; R11.2 Nausea with vomiting, unspecified; R19.7 Diarrhea, unspecified; R10.30 Lower abdominal pain, unspecified; C50.912 Malignant neoplasm of unspecified site of left female breast; E78.00 Pure hypercholesterolemia, unspecified; K21.9 Gastro-esophageal reflux disease without esophagitis; F41.9 Anxiety disorder, unspecified; F32.9 Major depressive disorder, single episode, unspecified; M19.90 Unspecified osteoarthritis, unspecified site; Z79.899 Other long term (current) drug therapy; Z88.8 Allergy status to other drugs, medicaments and biological substances; Z90.49 Acquired absence of other specified parts of digestive tract; Z90.710 Acquired absence of both cervix and uterus; Z90.10 Acquired absence of unspecified breast and nipple; Z98.890 Other specified postprocedural states; Z87.891 Personal history of nicotine dependence
CPT/HCPCS: 36415; 36430; 80053; 81001; 83690; 85025; 86850; 86900; 86901; 86922; 96361; 96365; 96366; 96375; 99285; J1170; J2405; J7040; J7050; P9016; 99284

== ENCOUNTER 2017-07-11 17:57 | Emergency (ER) | payer BC, MEDICARE ==
[2017-07-11 18:19] VITALS: BP 114/38
[2017-07-11] MEDS ORDERED: Lidocaine 1% 10 ML MDV INJECT ONE (18:36)
--- NOTE | 2017-07-11 18:46 | EDM.PDOC ---
ED HPI GENERAL MEDICAL PROBLEM - General Chief Complaint: Laceration Stated Complaint: R HAND LAC Time Seen by Provider: 07/11/17 18:30 Source of Information: Reports: Patient History Limitations: Reports: No Limitations - History of Present Illness INITIAL COMMENTS - FREE TEXT/NARRATIVE: Patient is a 62-year-old female who was walking up a set of stairs lost her balance and fell accidentally cutting herself on a wall ornament. Patient denies LOC, head/neck/back pain. Laceration measures 3 cm to the lateral aspect of the right pinky finger. She has no sensorimotor deficits. Bleeding is minimal along with pain is minimal at this time. No other discomfort or complaints to the remaining fingers, hand, wrist, forearm, elbow, upper arm, or shoulder. Tetanus status is up-to-date. Of note she recently was just discharged from the hospital today in [place] for stage II breast cancer. Patient had extended hospitalization 2nd to multiple episodes of C. difficile. She was not released from the hospital until testing revealed resolution. She is on 2 different antibiotics at this point in fear that the Port-A-Cath is infected. She offers no additional c/o's at this time. Right 5-Little finger Pain Score (Numeric/FACES): 4 - Related Data Allergies Allergy/AdvReac Type Severity Reaction Status Date / Time diphenhydramine Allergy Airway Verified 07/11/17 18:14 [From Benadryl] Tightness Home Meds: Home Meds Escitalopram [Lexapro] 10 mg PO DAILY 02/18/17 [History] Memantine HCl [Namenda] 7 mg PO DAILY 02/18/17 [History] Omeprazole Magnesium [Prilosec Otc] 20 mg PO DAILY 02/18/17 [History] Zolpidem [Ambien] 10 mg PO BEDTIME 02/18/17 [History] atorvaSTATin [Lipitor] 10 mg PO DAILY 02/18/17 [History] buPROPion HCl [Wellbutrin Xl] 300 mg PO DAILY 02/18/17 [History] Antibiotic Pills 07/11/17 [History] Past Medical History HEENT History: Reports: Impaired Vision Cardiovascular History: Reports: High Cholesterol Respiratory History: Reports: SOB Gastrointestinal History: Reports: GERD Musculoskeletal History: Reports: Osteoarthritis Psychiatric History: Reports: Anxiety, Depression Oncologic (Cancer) History: Reports: Breast, Other (See Below) Other Oncologic History: "Checking me for CML" - Infectious Disease History Infectious Disease History: Reports: Chicken Pox, Mumps - Past Surgical History HEENT Surgical History: Reports: Oral Surgery, Tonsillectomy Other Cardiovascular Surgeries/Procedures: "attempted to place stent, but then didn't need to once they were in there." GI Surgical History: Reports: Appendectomy, Cholecystectomy Female Surgical History: Reports: Hysterectomy, Mastectomy Oncologic Surgical History: Reports: Mastectomy Social & Family History - Family History Family Medical History: Noncontributory - Tobacco Use Smoking Status *Q: Former Smoker Years of Tobacco use: 43 Packs/Tins Daily: 1 Used Tobacco, but Quit: Yes Month Tobacco Last Used: 4 yrs - Caffeine Use Caffeine Use: Reports: Soda, Tea - Recreational Drug Use Recreational Drug Use: No - Living Situation & Occupation Living situation: Reports: , with Spouse 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 ED EXAM, SKIN/RASH Exam: See Below Exam Limited By: No Limitations General Appearance: Alert, WD/WN, No Apparent Distress Ears: Hearing Grossly Normal Nose: Normal Inspection Throat/Mouth: Normal Voice, No Airway Compromise Neck: Normal Inspection Respiratory/Chest: No Respiratory Distress, No Accessory Muscle Use Cardiovascular: Normal Peripheral Pulses, Regular Rate, Rhythm Peripheral Pulses: 2+: Radial (R) Extremities: Other (3cm deep laceration to the right lateral pinky finger involving the proximal phalanx. Minimal bleeding. Full AROM present. No echycmosis, bony abnormalities, or pain to the remaining fingers, hand, wrist elbow. ) Neurological: Alert, Oriented, CN II-XII Intact, Normal Cognition, No Motor/ Sensory Deficits Psychiatric: Normal Affect, Normal Mood Skin: Warm, Dry, Normal Color ED SKIN PROCEDURES - Laceration/Wound Repair Right Lateral Finger Lac/Wound length In cm: 3 Appearance: Subcutaneous Distal NVT: Neuro & Vascular Intact, No Tendon Injury Anesthetic Type: Local Local Anesthesia - Lidocaine (Xylocaine): 1% Plain Local Anesthetic Volume: 3cc Skin Prep: Chlorhexidine (Hibiciens), Saline, Sterile Drape Exploration/Debridement/Repair: Wound Explored, In a Bloodless Field, Explored to Base, No Foreign Material Found Closed with: Sutures Suture Size: 4-0 # of Sutures: 7 Suture Type: Prolene, Interrupted, Simple Sterile Dressing Applied: Nurse Tetanus Status Addressed: Yes Complications: No Course - Vital Signs Last Recorded V/S: Last Vital Signs Temp 99.0 F 07/11/17 18:18 Pulse 98 07/11/17 18:18 Resp 20 07/11/17 18:18 BP 114/38 L 07/11/17 18:18 Pulse Ox 99 07/11/17 18:18 - Orders/Labs/Meds Meds: Medications Discontinued Medications Generic Name Dose Route Start Last Admin Trade Name Queta PRN Reason Stop Dose Admin Lidocaine HCl 10 ml 07/11/17 18:36 07/11/17 19:20 Xylocaine 1% INJECT 07/11/17 18:37 10 ml ONETIME ONE Administration - Re-Assessments/Exams Free Text/Narrative Re-Assessment/Exam: Ordered 1% lidocaine. Laceration closed with no complications. Discharge instructions as documented. Of note patient complained of swelling to the dorsal aspect of the left hand with mild pain.She was able to flex and extend all her fingers and wrist. Offered x-ray of the left hand. She refused. Departure - Departure Time of Disposition: 18:45 Disposition: Home, Self-Care 01 Condition: Good Clinical Impression: Laceration of finger Qualifiers: Encounter type: initial encounter Finger: little finger Damage to nail status: without damage Foreign body presence: without foreign body Laterality: right Qualified Code(s): S61.216A - Laceration without foreign body of right little finger without damage to nail, initial encounter - Discharge Information Instructions: Laceration Care, Adult, [id number] Referrals: Brigette Gomez, VEIN ACCESS TECHNICIAN [Primary Care Provider] - Forms: ED Department Discharge Additional Instructions: Cleanse site twice daily with soap and water, pat dry, reapply triple antibiotic ointment, and dressing. Apply ice to the affected area as needed. Followup with a provider at [facility] in [place] for suture removal in 7 to 10 days. Return to the E.D. for any new or worsening symptoms.
== END 2017-07-11 20:05 | disposition home or self-care (01) ==
LOC: JD.ED 17:57
DX: S61.216A Laceration without foreign body of right little finger without damage to nail, initial encounter (principal); E78.00 Pure hypercholesterolemia, unspecified; K21.9 Gastro-esophageal reflux disease without esophagitis; M19.90 Unspecified osteoarthritis, unspecified site; Z87.891 Personal history of nicotine dependence; Z79.899 Other long term (current) drug therapy; W01.118A Fall on same level from slipping, tripping and stumbling with subsequent striking against other sharp object, initial encounter
CPT/HCPCS: 12002; 99282-25; 99283-25

== ENCOUNTER 2018-04-04 00:14 | Emergency (ER) | payer BC, MEDICARE ==
[2018-04-04 00:24] VITALS: BP 111/48
--- NOTE | 2018-04-04 01:30 | EDM.PDOC ---
ED HPI GENERAL MEDICAL PROBLEM - General Chief Complaint: ENT Problem Stated Complaint: NOSE BLEED Time Seen by Provider: 04/04/18 00:31 Source of Information: Reports: Patient History Limitations: Reports: No Limitations - History of Present Illness INITIAL COMMENTS - FREE TEXT/NARRATIVE: The patient presents with a bloody nose. This started about 2 hours before arrival. She has breast cancer and she is on chemo. She has had nose bleeds before but not this bad. There was no trauma. She has low platelets. Her blood pressure is not elevated. She is bleeding from the right nostil. Onset: Sudden Duration: Hour(s): (2) Severity: Moderate Improves with: Reports: None Worsens with: Reports: None Associated Symptoms: Reports: No Other Symptoms - Related Data Allergies Allergy/AdvReac Type Severity Reaction Status Date / Time No Known Allergies Allergy Verified 04/04/18 00:22 Home Meds: Home Meds Escitalopram [Lexapro] 30 mg PO DAILY 02/18/17 [History] Memantine HCl [Namenda] 7 mg PO DAILY 02/18/17 [History] Omeprazole Magnesium [Prilosec Otc] 20 mg PO BIDAC 02/18/17 [History] Zolpidem [Ambien] 10 mg PO BEDTIME PRN 02/18/17 [History] atorvaSTATin [Lipitor] 10 mg PO DAILY 02/18/17 [History] buPROPion HCl [Wellbutrin Xl] 300 mg PO DAILY 02/18/17 [History] Acetaminophen 500 mg PO Q4H PRN 01/19/18 [History] Digoxin 0.125 mg PO DAILY 01/19/18 [History] Dronabinol [Marinol] 5 mg PO BIDAC 01/19/18 [History] Hydroxyurea [Hydrea] 1,000 mg PO BID 01/19/18 [History] Potassium Chloride 40 meq PO BID 01/19/18 [History] LORazepam 0.25 mg PO QAM 03/09/18 [History] LORazepam 1 mg PO BEDTIME 03/09/18 [History] Anastrozole [Arimidex] 1 mg PO DAILY 04/04/18 [History] Past Medical History HEENT History: Reports: Allergic Rhinitis, Cataract, Impaired Vision Cardiovascular History: Reports: High Cholesterol, Other (See Below) Other Cardiovascular History: "leaky valve" Respiratory History: Reports: SOB Gastrointestinal History: Reports: GERD, Irritable Bowel Syndrome, Other (See Below) Other Gastrointestinal History: Enlarged spleen Musculoskeletal History: Reports: Osteoarthritis Neurological History: Reports: Headaches, Chronic Psychiatric History: Reports: Anxiety, Depression Hematologic History: Reports: Anemia, Blood Transfusion(s) Oncologic (Cancer) History: Reports: Breast, Leukemia Other Oncologic History: "Checking me for CML" Dermatologic History: Reports: Other (See Below) Other Dermatologic History: Dry skin - Infectious Disease History Infectious Disease History: Reports: Chicken Pox, Mumps - Past Surgical History HEENT Surgical History: Reports: Oral Surgery, Tonsillectomy Other Cardiovascular Surgeries/Procedures: "attempted to place stent, but then didn't need to once they were in there." GI Surgical History: Reports: Appendectomy, Colonoscopy, EGD, Hernia, Abdominal Female Surgical History: Reports: Hysterectomy, Mastectomy Oncologic Surgical History: Reports: Mastectomy Social & Family History - Family History Family Medical History: Noncontributory - Tobacco Use Smoking Status *Q: Former Smoker Used Tobacco, but Quit: Yes Month/Year Tobacco Last Used: 2013 - Caffeine Use Caffeine Use: Reports: Soda, Tea - Recreational Drug Use Recreational Drug Use: No - Living Situation & Occupation Living situation: Reports: , with Spouse 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) ED ROS ENT - Review of Systems Review Of Systems: See Below Constitutional: Reports: No Symptoms HEENT: Reports: Nosebleed Respiratory: Reports: No Symptoms Cardiovascular: Reports: No Symptoms Endocrine: Reports: No Symptoms GI/Abdominal: Reports: No Symptoms : Reports: No Symptoms Musculoskeletal: Reports: No Symptoms ED EXAM, ENT - Physical Exam Exam: See Below Exam Limited By: No Limitations General Appearance: Alert, No Apparent Distress Ears: Normal External Exam Nose: Active Bleeding (Right nostril) Mouth/Throat: Normal Inspection Head: Atraumatic, Normocephalic Neck: Normal Inspection Respiratory/Chest: No Respiratory Distress, Lungs Clear, Normal Breath Sounds Cardiovascular: Regular Rate, Rhythm, No Edema, No Murmur GI/Abdominal: Soft, Non-Tender, No Organomegaly, No Mass Back: Normal Inspection Extremities: Normal Inspection ED ENT PROCEDURES - Epistaxis Procedure Indication: Epistaxis Recent anticoagulants/antiplatlets: No Uncontrolled HTN: No Recent septal/nasal surgery: No Site of bleeding: Right Nare Clearing of clots: Patient Blew Nose Topical Meds: Topical Cocaine Ice pack to area: No Chemical cautery: Silver Nitrate Topical Complications: No Course - Vital Signs Last Recorded V/S: Last Vital Signs Temp 97.5 F 04/04/18 00:22 Pulse 87 04/04/18 00:22 Resp 16 04/04/18 00:22 BP 111/48 L 04/04/18 00:22 Pulse Ox 95 04/04/18 00:22 - Orders/Labs/Meds Labs: Laboratory Tests 04/04/18 Range/Units 00:45 WBC 16.82 H (3.98-10.04) K/mm3 RBC 2.62 L (3.98-5.22) M/mm3 Hgb 8.7 L (11.2-15.7) gm/L Hct 27.6 L (34.1-44.9) % MCV 105.3 H (79.4-94.8) fl MCH 33.2 H (25.6-32.2) pg MCHC 31.5 L (32.2-35.5) g/dl Plt Count 63 L (182-369) K/mm3 MPV 11.1 (9.4-12.3) fl Neut % (Auto) 45.3 (34.0-71.1) % Lymph % (Auto) 8.9 L (19.3-51.7) % [place] % (Auto) 39.0 H (4.7-12.5) % Eos % (Auto) 0.8 (0.7-5.8) Baso % (Auto) 3.6 H (0.1-1.2) % Neut # (Auto) 7.62 H (1.56-6.13) K/mm3 Lymph # (Auto) 1.49 (1.18-3.74) K/mm3 [place] # (Auto) 6.56 H (0.24-0.36) K/mm3 Eos # (Auto) 0.14 (0.04-0.36) K/mm3 Baso # (Auto) 0.60 H (0.01-0.08) K/mm3 Manual Slide Review Abnormal smear Meds: Medications Discontinued Medications Generic Name Dose Route Start Last Admin Trade Name Freq PRN Reason Stop Dose Admin Cocaine HCl 3 ml 04/04/18 00:35 Cocaine Hcl TOP 04/04/18 00:36 ONETIME ONE - Re-Assessments/Exams Free Text/Narrative Re-Assessment/Exam: 04/04/18 01:29 Her WBC was elevated at 16.82. Her Hgb was low at 8.7. Her platelets were 63. It appears it has stopped. I will discharge her home. Departure - Departure Time of Disposition: 01:35 Disposition: Home, Self-Care 01 Condition: Good Clinical Impression: Epistaxis, Thrombocytopenia Leukocytosis Qualifiers: Leukocytosis type: unspecified Qualified Code(s): D72.829 - Elevated white blood cell count, unspecified Anemia Qualifiers: Anemia type: other cause Other causes of anemia: other cause, not classified Qualified Code(s): D64.89 - Other specified anemias - Discharge Information Referrals: Brigette Gomez, FORENSIC TOXICOLOGIST [Primary Care Provider] - Forms: ED Department Discharge Additional Instructions: Put some antibiotic ointment in your nose a couple times per day for 3 days. Take your medication as prescribed. Let Dr Odom know your lab values. Please return if you are worse.
== END 2018-04-04 01:44 | disposition home or self-care (01) ==
LOC: JD.ED 00:14
DX: R04.0 Epistaxis (principal); D69.6 Thrombocytopenia, unspecified; D72.829 Elevated white blood cell count, unspecified; D64.89 Other specified anemias; Z79.899 Other long term (current) drug therapy; Z87.891 Personal history of nicotine dependence
CPT/HCPCS: 30901; 36415; 85025; 99282-25; 99283-25

== ENCOUNTER 2018-05-06 12:23 | Emergency (ER) | payer BC, MEDICARE ==
[2018-05-06 12:36] VITALS: BP 90/46
[2018-05-06] MEDS ORDERED: Albuterol 0.083% 2.5 MG/3 ML Neb Soln NEB ONE (12:55)
[2018-05-06] MEDS ORDERED: Sodium Chloride 0.9% 10 ML Syringe FLUSH PRN (12:56)
--- NOTE | 2018-05-06 13:52 | EDM.PDOC ---
ED HPI GENERAL MEDICAL PROBLEM - General Chief Complaint: Respiratory Problem Stated Complaint: COUGHING AND FEVER Time Seen by Provider: 05/06/18 12:37 Source of Information: Reports: Patient, Family, RN Notes Reviewed - History of Present Illness INITIAL COMMENTS - FREE TEXT/NARRATIVE: 63 luis old female comes in with worsening cough over the past week or so. Hx of chronic anemia, MDSMPN syndrome. Last blood transfusion about 4 days ago. does feel chronically weak and dizzy. Has had sinus congestion, some post nasal drainage. No recent fever. No abd pain, vomiting or diarrhea. Abdomen Pain Score (Numeric/FACES): 7 - Related Data Allergies Allergy/AdvReac Type Severity Reaction Status Date / Time diphenhydramine Allergy Cannot Verified 04/18/18 09:11 Remember Home Meds: Home Meds Escitalopram [Lexapro] 30 mg PO DAILY 02/18/17 [History] Memantine HCl [Namenda] 7 mg PO DAILY 02/18/17 [History] Omeprazole Magnesium [Prilosec Otc] 20 mg PO BIDAC 02/18/17 [History] Zolpidem [Ambien] 10 mg PO BEDTIME PRN 02/18/17 [History] atorvaSTATin [Lipitor] 10 mg PO DAILY 02/18/17 [History] buPROPion HCl [Wellbutrin Xl] 300 mg PO DAILY 02/18/17 [History] Acetaminophen 500 mg PO Q4H PRN 01/19/18 [History] Digoxin 0.125 mg PO DAILY 01/19/18 [History] Dronabinol [Marinol] 5 mg PO BIDAC 01/19/18 [History] Potassium Chloride 40 meq PO BID 01/19/18 [History] LORazepam 0.25 mg PO QAM 03/09/18 [History] LORazepam 1 mg PO BEDTIME 03/09/18 [History] Dicyclomine [Bentyl] 10 mg PO DAILY 04/18/18 [History] Albuterol [Proventil HFA] 6.7 gm IH QID #1 inhaler 05/06/18 [Rx] Past Medical History HEENT History: Reports: Allergic Rhinitis, Cataract, Impaired Vision Cardiovascular History: Reports: High Cholesterol, Other (See Below) Other Cardiovascular History: "leaky valve" Respiratory History: Reports: SOB Gastrointestinal History: Reports: GERD, Irritable Bowel Syndrome, Other (See Below) Other Gastrointestinal History: Enlarged spleen Musculoskeletal History: Reports: Osteoarthritis Neurological History: Reports: Headaches, Chronic Psychiatric History: Reports: Anxiety, Depression Hematologic History: Reports: Anemia, Blood Transfusion(s) Oncologic (Cancer) History: Reports: Breast, Leukemia Other Oncologic History: "Checking me for CML" Dermatologic History: Reports: Other (See Below) Other Dermatologic History: Dry skin - Infectious Disease History Infectious Disease History: Reports: Chicken Pox, Mumps - Past Surgical History HEENT Surgical History: Reports: Oral Surgery, Tonsillectomy Other Cardiovascular Surgeries/Procedures: "attempted to place stent, but then didn't need to once they were in there." GI Surgical History: Reports: Appendectomy, Colonoscopy, EGD, Hernia, Abdominal Female Surgical History: Reports: Hysterectomy, Mastectomy Oncologic Surgical History: Reports: Mastectomy Social & Family History - Family History Family Medical History: Noncontributory - Tobacco Use Smoking Status *Q: Former Smoker Used Tobacco, but Quit: Yes Month/Year Tobacco Last Used: 5 yr - Caffeine Use Caffeine Use: Reports: Soda - Recreational Drug Use Recreational Drug Use: No - Living Situation & Occupation Living situation: Reports: , with Spouse 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 ). Denies: Throat Pain Respiratory: Reports: Shortness of Breath (chronically), Cough, Sputum Cardiovascular: Denies: Chest Pain GI/Abdominal: Denies: Abdominal Pain, Nausea, Vomiting Musculoskeletal: Denies: Shoulder Pain, Arm Pain Skin: Denies: Rash Neurological: Reports: Dizziness, Weakness (generalized) ED EXAM, GENERAL - Physical Exam Exam: See Below General Appearance: Alert, No Apparent Distress Throat/Mouth: Normal Inspection, Normal Oropharynx Head: Atraumatic Neck: Supple, Full Range of Motion Respiratory/Chest: No Respiratory Distress, Lungs Clear. No: Rales, Rhonchi, Wheezing Cardiovascular: Regular Rate, Rhythm GI/Abdominal: Soft, Non-Tender Extremities: Normal Inspection, Pedal Edema (mild to moderate bilat) Neurological: Alert, Oriented, No Motor/Sensory Deficits Skin Exam: Warm, Dry, Normal Color Course - Vital Signs Last Recorded V/S: Last Vital Signs Temp 98.8 F 05/06/18 12:35 Pulse 86 05/06/18 12:35 Resp 20 05/06/18 12:35 BP 90/46 L 05/06/18 12:35 Pulse Ox 93 L 05/06/18 13:08 - Orders/Labs/Meds Orders: Active Orders 24 hr Category Date Time Status Peripheral IV Care [RC] . DIRECTED Care 05/06/18 12:56 Active RT Aerosol Therapy [RC] ASDIRECTED Care 05/06/18 12:56 Active Chest 1V Frontal [CR] Stat Exams 05/06/18 12:54 Taken Peripheral IV Insertion Adult [OM.PC] Stat Oth 05/06/18 12:55 Ordered Labs: Laboratory Tests 05/06/18 05/06/18 05/06/18 Range/Units 13:00 13:00 13:00 WBC 4.45 (3.98-10.04) K/mm3 RBC 2.49 L (3.98-5.22) M/mm3 Hgb 7.6 L (11.2-15.7) gm/L Hct 23.9 L (34.1-44.9) % MCV 96.0 H (79.4-94.8) fl MCH 30.5 (25.6-32.2) pg MCHC 31.8 L (32.2-35.5) g/dl RDW Std Deviation 52.7 H (36.4-46.3) fL Plt Count 10 L* (182-369) K/mm3 MPV 12.0 (9.4-12.3) fl Neut % (Auto) 33.2 L (34.0-71.1) % Lymph % (Auto) 13.5 L (19.3-51.7) % [place] % (Auto) 47.4 H (4.7-12.5) % Eos % (Auto) 0.9 (0.7-5.8) Baso % (Auto) 4.3 H (0.1-1.2) % Neut # (Auto) 1.48 L (1.56-6.13) K/mm3 Lymph # (Auto) 0.60 L (1.18-3.74) K/mm3 [place] # (Auto) 2.11 H (0.24-0.36) K/mm3 Eos # (Auto) 0.04 (0.04-0.36) K/mm3 Baso # (Auto) 0.19 H (0.01-0.08) K/mm3 Manual Slide Review Abnormal smear Sodium 142 (136-145) mEq/L Potassium 3.8 (3.5-5.1) mEq/L Chloride 112 H (98-107) mEq/L Carbon Dioxide 21 (21-32) mEq/L Anion Gap 12.8 (5-15) BUN 27 H (7-18) mg/dL Creatinine 1.1 H (0.55-1.02) mg/dL Est Cr Clr Drug Dosing 43.87 mL/min Estimated GFR (MDRD) 50 (>60) mL/min BUN/Creatinine Ratio 24.5 H (14-18) Glucose 78 L (80-115) mg/dL Calcium 7.3 L (8.5-10.1) mg/dL Total Bilirubin 0.6 (0.2-1.0) mg/dL AST 41 H (15-37) U/L ALT 56 (14-59) U/L Alkaline Phosphatase 133 H (46-116) U/L C-Reactive Protein 2.1 H* (<1.0) mg/dL NT-Pro-B Natriuret Pep (0-125) pg/mL Total Protein 4.3 L (6.4-8.2) g/dl Albumin 1.8 L (3.4-5.0) g/dl Globulin 2.5 gm/dL Albumin/Globulin Ratio 0.7 L (1-2) 05/06/18 Range/Units 13:00 WBC (3.98-10.04) K/mm3 RBC (3.98-5.22) M/mm3 Hgb (11.2-15.7) gm/L Hct (34.1-44.9) % MCV (79.4-94.8) fl MCH (25.6-32.2) pg MCHC (32.2-35.5) g/dl RDW Std Deviation (36.4-46.3) fL Plt Count (182-369) K/mm3 MPV (9.4-12.3) fl Neut % (Auto) (34.0-71.1) % Lymph % (Auto) (19.3-51.7) % [place] % (Auto) (4.7-12.5) % Eos % (Auto) (0.7-5.8) Baso % (Auto) (0.1-1.2) % Neut # (Auto) (1.56-6.13) K/mm3 Lymph # (Auto) (1.18-3.74) K/mm3 [place] # (Auto) (0.24-0.36) K/mm3 Eos # (Auto) (0.04-0.36) K/mm3 Baso # (Auto) (0.01-0.08) K/mm3 Manual Slide Review Sodium (136-145) mEq/L Potassium (3.5-5.1) mEq/L Chloride (98-107) mEq/L Carbon Dioxide (21-32) mEq/L Anion Gap (5-15) BUN (7-18) mg/dL Creatinine (0.55-1.02) mg/dL Est Cr Clr Drug Dosing mL/min Estimated GFR (MDRD) (>60) mL/min BUN/Creatinine Ratio (14-18) Glucose (80-115) mg/dL Calcium (8.5-10.1) mg/dL Total Bilirubin (0.2-1.0) mg/dL AST (15-37) U/L ALT (14-59) U/L Alkaline Phosphatase (46-116) U/L C-Reactive Protein (<1.0) mg/dL NT-Pro-B Natriuret Pep 2941 H (0-125) pg/mL Total Protein (6.4-8.2) g/dl Albumin (3.4-5.0) g/dl Globulin gm/dL Albumin/Globulin Ratio (1-2) Meds: Medications Discontinued Medications Generic Name Dose Route Start Last Admin Trade Name Freq PRN Reason Stop Dose Admin Albuterol 2.5 mg 05/06/18 12:55 05/06/18 13:07 Proventil Neb Soln NEB 05/06/18 12:56 2.5 mg ONETIME ONE Administration Sodium Chloride 10 ml 05/06/18 12:56 05/06/18 14:18 Saline Flush FLUSH 10 ml ASDIRECTED PRN Administration Keep Vein Open - Re-Assessments/Exams Free Text/Narrative Re-Assessment/Exam: 05/06/18 13:52 CXR does show some bilat pul congestion. WBC nl. Hgb7.6. platelets 10,000. 05/06/18 15:54. she had fairly good relief of cough after an albuterol neb, also less short of breath. She does have a component of chronic sinusitis with postnasal drainage making her cough, difficulty breathing worse. She is willing to work with an inhaler for what help that can give, I do not see any evidence for pneumonia, She does see he ENT provider in about 4 days. Departure - Departure Time of Disposition: 14:49 Disposition: Home, Self-Care 01 Condition: Fair Clinical Impression: Bronchitis Sinusitis Qualifiers: Sinusitis location: unspecified location Chronicity: chronic Qualified Code(s) : J32.9 - Chronic sinusitis, unspecified - Discharge Information Prescriptions: Albuterol [Proventil HFA] 6.7 gm IH QID #1 inhaler Instructions: Sinusitis, Adult, Acute Bronchitis, Adult Referrals: Brigette Gomez, FABRIC AND ACCESSORIES ESTIMATOR [Primary Care Provider] - Forms: ED Department Discharge Additional Instructions: continue current medications as prescribed, albuteral inhaler 2 puffs 3 to 4 times daily to help your cough and breathing, see your ENT provider next W[place] as planned, return to ED as needed if symptoms worsening in any way. - My Orders Last 24 Hours: My Active Orders 05/06/18 12:54 Chest 1V Frontal [CR] Stat 05/06/18 12:55 Peripheral IV Insertion Adult [OM.PC] Stat 05/06/18 12:56 Peripheral IV Care [RC] . DIRECTED RT Aerosol Therapy [RC] ASDIRECTED - Assessment/Plan Last 24 Hours: My Active Orders 05/06/18 12:54 Chest 1V Frontal [CR] Stat 05/06/18 12:55 Peripheral IV Insertion Adult [OM.PC] Stat 05/06/18 12:56 Peripheral IV Care [RC] . DIRECTED RT Aerosol Therapy [RC] ASDIRECTED
--- NOTE | 2018-05-08 10:03 | CR ---
Chest: Portable view of the chest was obtained. Comparison: Prior chest x-ray of 03/14/17. Heart is enlarged. Surgical clips are seen within the right chest wall. Pulmonary vessels are increased which appears stable. Slight scarring is noted within the left midlung. Bilateral breast prosthesis are noted causing increased density overlying both lower lungs. Infusion port seen on prior study has been removed in the interim. Impression: 1. Cardiomegaly and chronic increased pulmonary vessels as well as chronic scarring within left midlung. 2. Other incidental findings. Nothing acute is definitely appreciated. Diagnostic code #3
== END 2018-05-06 15:10 | disposition home or self-care (01) ==
LOC: JD.ED 12:23
DX: J40 Bronchitis, not specified as acute or chronic (principal); J32.9 Chronic sinusitis, unspecified; E78.00 Pure hypercholesterolemia, unspecified; F41.9 Anxiety disorder, unspecified; F32.9 Major depressive disorder, single episode, unspecified; Z88.8 Allergy status to other drugs, medicaments and biological substances
CPT/HCPCS: 36415; 71045; 80053; 83880; 85025; 86140; 94640; 99284; J7050; 99283

== ENCOUNTER 2018-05-09 17:04 | Emergency (ER) | payer BC, MEDICARE ==
[2018-05-09] MEDS ORDERED: Sodium Chloride 0.9% 1,000 ML IV ONE ×2 (17:27→19:05)
[2018-05-09] MEDS ORDERED: Cefepime 2 GM in Premix Bag 1 BAG IV ONE (17:28)
[2018-05-09] MEDS ORDERED: Levofloxacin/Dextrose 5%-Water 750 MG in Premix Bag 1 BAG IV ONE (19:22)
[2018-05-09] MEDS ORDERED: Albumin 25% 12.5 GM/50 ML BAG IV ONE (19:23)
--- NOTE | 2018-05-09 20:20 | EDM.PDOC ---
ED HPI GENERAL MEDICAL PROBLEM - General Chief Complaint: Genitourinary Problem Stated Complaint: SENT OVER FROM [facility] Time Seen by Provider: 05/09/18 17:50 Source of Information: Reports: Patient, Old Records (recent ER records, CBC and UA results from today) History Limitations: Reports: No Limitations - History of Present Illness INITIAL COMMENTS - FREE TEXT/NARRATIVE: 63-year-old female is sent over from the [facility] for thrombocytopenia and anemia. Reportedly the patient has a past medical history of breast cancer status post bilateral mastectomy and leukemia. She is currently receiving chemotherapy for her leukemia. Today while the infusion center she received a liter of fluids. Labs including a CBC and UA were done. She was found to have a platelet count of 2, hemoglobin of 7.5 and a white count of 10.1. UA showed positive nitrites, large amount of leukocyte esterase and moderate bacteria seen on microscopy. She was sent to us for further management and care. Patient reports that she is not having fevers. She has been feeling more fatigued and more weak than normal. She developed some coughing today and diarrhea today. Reports that the dysuria started a few days ago she started expressing hematuria today. She is also complaining of some minor abdominal discomfort. She is also complaining of pain to the bilateral legs which has caused her to be more weak than normal. Patient reports she has received both blood and platelets before. Reviewed patient's records show that she was in the ED just 3 days ago. She presented for fever and cough. Labs at that time showed a white count of 4.45, hemoglobin 7.6 and platelets 10. CRP is 2.1. BNP 2941. Chest x-ray showed chronic congestion but no pneumonia. Vitals at that time showed a pressure of 90 /46, heart rate of 86, satting 90% on room air. Abdominal Pain Score (Numeric/FACES): 8 - Related Data Allergies Allergy/AdvReac Type Severity Reaction Status Date / Time diphenhydramine Allergy Cannot Verified 05/09/18 17:17 Remember Home Meds: Home Meds Escitalopram [Lexapro] 30 mg PO DAILY 02/18/17 [History] Memantine HCl [Namenda] 7 mg PO DAILY 02/18/17 [History] Omeprazole Magnesium [Prilosec Otc] 20 mg PO BIDAC 02/18/17 [History] Zolpidem [Ambien] 10 mg PO BEDTIME PRN 02/18/17 [History] atorvaSTATin [Lipitor] 10 mg PO DAILY 02/18/17 [History] buPROPion HCl [Wellbutrin Xl] 300 mg PO DAILY 02/18/17 [History] Acetaminophen 500 mg PO Q4H PRN 01/19/18 [History] Digoxin 0.125 mg PO DAILY 01/19/18 [History] Dronabinol [Marinol] 5 mg PO BIDAC 01/19/18 [History] Potassium Chloride 40 meq PO BID 01/19/18 [History] LORazepam 0.25 mg PO QAM 03/09/18 [History] LORazepam 1 mg PO BEDTIME 03/09/18 [History] Dicyclomine [Bentyl] 10 mg PO DAILY 04/18/18 [History] Albuterol [Proventil HFA] 6.7 gm IH QID #1 inhaler 05/06/18 [Rx] Past Medical History HEENT History: Reports: Allergic Rhinitis, Cataract, Impaired Vision Cardiovascular History: Reports: High Cholesterol, Other (See Below) Other Cardiovascular History: "leaky valve" Respiratory History: Reports: SOB Gastrointestinal History: Reports: GERD, Irritable Bowel Syndrome, Other (See Below) Other Gastrointestinal History: Enlarged spleen Musculoskeletal History: Reports: Osteoarthritis Neurological History: Reports: Headaches, Chronic Psychiatric History: Reports: Anxiety, Depression Hematologic History: Reports: Anemia, Blood Transfusion(s) Oncologic (Cancer) History: Reports: Breast, Leukemia Other Oncologic History: "Checking me for CML" Dermatologic History: Reports: Other (See Below) Other Dermatologic History: Dry skin - Infectious Disease History Infectious Disease History: Reports: Chicken Pox, Mumps - Past Surgical History HEENT Surgical History: Reports: Oral Surgery, Tonsillectomy Other Cardiovascular Surgeries/Procedures: "attempted to place stent, but then didn't need to once they were in there." GI Surgical History: Reports: Appendectomy, Colonoscopy, EGD, Hernia, Abdominal Female Surgical History: Reports: Hysterectomy, Mastectomy Oncologic Surgical History: Reports: Mastectomy Social & Family History - Family History Family Medical History: Noncontributory - Tobacco Use Smoking Status *Q: Unknown Ever Smoked - Caffeine Use Caffeine Use: Reports: Soda - Living Situation & Occupation Living situation: Reports: , with Spouse 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 Denies: Fever Respiratory: Reports: Cough GI/Abdominal: Reports: Abdominal Pain, Diarrhea, Nausea. Denies: Vomiting : Reports: Dysuria, Hematuria Musculoskeletal: Reports: Leg Pain (bilateral) ED EXAM, GENERAL - Physical Exam Exam: See Below Exam Limited By: No Limitations General Appearance: Alert, No Apparent Distress, Other (Chronically ill- appearing.) Eye Exam: Bilateral Eye: Normal Inspection Ears: Normal External Exam Nose: Normal Inspection Throat/Mouth: Normal Inspection, Normal Lips, Normal Voice, No Airway Compromise Respiratory/Chest: No Respiratory Distress, Lungs Clear, Normal Breath Sounds Cardiovascular: Normal Peripheral Pulses, Regular Rate, Rhythm, No Murmur Extremities: Normal Inspection, No Pedal Edema, Other (swelling to the left arm from multiple IV attmpts today). No: Guille's Sign Neurological: Alert, Normal Cognition Psychiatric: Normal Affect, Normal Mood Skin Exam: Warm, Dry, Pallor Course - Vital Signs Last Recorded V/S: Last Vital Signs Temp 98.2 F 05/09/18 20:19 Pulse 87 05/09/18 20:19 Resp 27 H 05/09/18 20:19 BP 81/26 L 05/09/18 20:19 Pulse Ox 86 L 05/09/18 17:17 - Orders/Labs/Meds Orders: Active Orders 24 hr Category Date Time Status Cardiac Monitoring [RC] . DIRECTED Care 05/09/18 17:28 Active Oxygen Therapy [RC] ASDIRECTED Care 05/09/18 17:39 Active Chest 1V Frontal [CR] Stat Exams 05/09/18 17:39 Taken CULTURE BLOOD [BC] Stat Lab 05/09/18 17:46 Received CULTURE BLOOD [BC] Stat Lab 05/09/18 17:56 Received Levofloxacin/Dextrose 5%-Water [Levaquin in D5W 750 MG/ Med 05/09/18 19:22 Active 150 ML] 750 mg Premix Bag 1 bag IV ONETIME Blood Culture x2 Reflex Set [OM.PC] Stat Oth 05/09/18 17:28 Ordered Transfuse Red Blood Cells [COMM] Stat Oth 05/09/18 17:37 Ordered Transfuse Red Blood Cells [COMM] Stat Oth 05/09/18 17:37 Ordered Medication Orders Levofloxacin/Dextrose 750 mg/ (Premix) 150 mls @ 100 mls/hr IV ONETIME ONE Stop: 05/09/18 20:51 Last Admin: 05/09/18 20:19 Dose: 100 mls/hr Labs: Laboratory Tests 05/09/18 05/09/18 05/09/18 Range/Units 17:46 17:46 17:56 PT 17.7 H (9.5-12.1) SECONDS INR 1.64 APTT 62 H (24-31) SECONDS Sodium 142 (136-145) mEq/L Potassium 3.6 (3.5-5.1) mEq/L Chloride 112 H (98-107) mEq/L Carbon Dioxide 20 L (21-32) mEq/L Anion Gap 13.6 (5-15) BUN 37 H (7-18) mg/dL Creatinine 1.5 H (0.55-1.02) mg/dL Est Cr Clr Drug Dosing 32.17 mL/min Estimated GFR (MDRD) 35 (>60) mL/min BUN/Creatinine Ratio 24.7 H (14-18) Glucose 89 (80-115) mg/dL Lactic Acid 1.1 (0.4-2.0) mmol/L Calcium 6.9 L (8.5-10.1) mg/dL Total Bilirubin 0.8 (0.2-1.0) mg/dL AST 20 (15-37) U/L ALT 41 (14-59) U/L Alkaline Phosphatase 157 H (46-116) U/L C-Reactive Protein (<1.0) mg/dL Total Protein 3.8 L (6.4-8.2) g/dl Albumin 1.5 L (3.4-5.0) g/dl Globulin 2.3 gm/dL Albumin/Globulin Ratio 0.7 L (1-2) Blood Type Gel Antibody Screen Crossmatch 05/09/18 05/09/18 Range/Units 17:56 17:56 PT (9.5-12.1) SECONDS INR APTT (24-31) SECONDS Sodium (136-145) mEq/L Potassium (3.5-5.1) mEq/L Chloride (98-107) mEq/L Carbon Dioxide (21-32) mEq/L Anion Gap (5-15) BUN (7-18) mg/dL Creatinine (0.55-1.02) mg/dL Est Cr Clr Drug Dosing mL/min Estimated GFR (MDRD) (>60) mL/min BUN/Creatinine Ratio (14-18) Glucose (80-115) mg/dL Lactic Acid (0.4-2.0) mmol/L Calcium (8.5-10.1) mg/dL Total Bilirubin (0.2-1.0) mg/dL AST (15-37) U/L ALT (14-59) U/L Alkaline Phosphatase (46-116) U/L C-Reactive Protein 7.2 H* (<1.0) mg/dL Total Protein (6.4-8.2) g/dl Albumin (3.4-5.0) g/dl Globulin gm/dL Albumin/Globulin Ratio (1-2) Blood Type A POSITIVE Gel Antibody Screen Negative Crossmatch See Detail Meds: Medications Generic Name Dose Route Start Last Admin Trade Name Freq PRN Reason Stop Dose Admin Levofloxacin/Dextrose 750 mg/ 150 mls @ 100 mls/hr 05/09/18 19:22 05/09/18 20 :19 Premix IV 05/09/18 20:51 100 mls/hr ONETIME ONE Administration Discontinued Medications Generic Name Dose Route Start Last Admin Trade Name Freq PRN Reason Stop Dose Admin Sodium Chloride 1,000 mls @ 999 mls/hr 05/09/18 17:27 05/09/18 18:00 Normal Saline IV 05/09/18 18:27 999 mls/hr ONETIME ONE Administration Cefepime HCl 2 gm/ Premix 50 mls @ 100 mls/hr 05/09/18 17:28 05/09/18 18:04 IV 05/09/18 17:57 100 mls/hr ONETIME ONE Administration Vancomycin HCl 1 gm/ Sodium 250 mls @ 250 mls/hr 05/09/18 17:38 Chloride IV 05/09/18 18:37 ONETIME ONE Sodium Chloride 1,000 mls @ 999 mls/hr 05/09/18 19:05 Normal Saline IV 05/09/18 20:05 ONETIME ONE Albumin Human 12.5 gm in 50 mls @ 100 mls/hr 05/09/18 19:23 05/09/18 19:40 Flexbumin 25% IV 05/09/18 19:52 100 mls/hr ONETIME ONE Administration - Radiology Interpretation Free Text/Narrative:: chest xray shows chronic congestion, no acute pneumonia appreciated. - Re-Assessments/Exams Free Text/Narrative Re-Assessment/Exam: 05/09/18 20:[address] Ware, hospitalist on-call concerns over her thrombocytopenia not being able to give her platelets here urgently. Recommend a higher level of care. Spoke with the patient regarding her labs. IV vancomycin and cefepime ordered due to concerns over her being uroseptic. Spoke with [facility] [address] Boles who agrees to accept the patient patient will go through the ER or Dr. Trujillo will be the accepting physician. Dr. Alonzo, boiler operator helper, also made aware of the patient. Recommended Levaquin instead of the cefepime and vancomycin. Recommended giving albumin. Once blood is started will plan to transport her by ambulance. Second IV has been established. Patient received a cefepime and was receiving IV Vanco but this will be changed to IV Levaquin. She has received the albumin and the blood was just started. Pressures continue to be low with systolics in the upper 70s to low 80s. We'll transport by ground ambulance. Departure - Departure Time of Disposition: 20:30 Disposition: DC/Tfer to Acute Hospital 02 Condition: Critical Clinical Impression: Thrombocytopenia, UTI (urinary tract infection), Sepsis, Hypotension - Discharge Information *PRESCRIPTION DRUG MONITORING PROGRAM REVIEWED*: No *COPY OF PRESCRIPTION DRUG MONITORING REPORT IN PATIENT MORE: No Referrals: PCP,Not In Area [Primary Care Provider] - Amairani Boles MD [Ordering Only Provider] - Forms: ED Department Discharge Additional Instructions: Patient will go by ground EMS to [place] in [place]. She'll go through the ED were Dr. Trujillo accepting. She will then likely go to the ICU. She has received a liter of fluid at the infusion center prior to arrival and received about a liter and half here in the ED. She is also received albumin, cefepime and about 500 mg of vancomycin prior to switched to Levaquin. She is currently receiving blood. - My Orders Last 24 Hours: My Active Orders 05/09/18 17:28 Cardiac Monitoring [RC] . DIRECTED Blood Culture x2 Reflex Set [OM.PC] Stat 05/09/18 17:37 Transfuse Red Blood Cells [COMM] Stat Transfuse Red Blood Cells [COMM] Stat 05/09/18 17:39 Oxygen Therapy [RC] ASDIRECTED Chest 1V Frontal [CR] Stat 05/09/18 17:46 CULTURE BLOOD [BC] Stat 05/09/18 17:56 CULTURE BLOOD [BC] Stat 05/09/18 19:22 Levofloxacin/Dextrose 5%-Water [Levaquin in D5W 750 MG/150 ML] 750 mg Premix Bag 1 bag IV ONETIME - Assessment/Plan Last 24 Hours: My Active Orders 05/09/18 17:28 Cardiac Monitoring [RC] . DIRECTED Blood Culture x2 Reflex Set [OM.PC] Stat 05/09/18 17:37 Transfuse Red Blood Cells [COMM] Stat Transfuse Red Blood Cells [COMM] Stat 05/09/18 17:39 Oxygen Therapy [RC] ASDIRECTED Chest 1V Frontal [CR] Stat 05/09/18 17:46 CULTURE BLOOD [BC] Stat 05/09/18 17:56 CULTURE BLOOD [BC] Stat 05/09/18 19:22 Levofloxacin/Dextrose 5%-Water [Levaquin in D5W 750 MG/150 ML] 750 mg Premix Bag 1 bag IV ONETIME
[2018-05-09] MEDS ORDERED: Acetaminophen 325 MG Tab PO ONE (20:41)
[2018-05-09 22:23] VITALS: BP 81/27
--- NOTE | 2018-05-10 10:15 | CR ---
Chest: Portable view of the chest was obtained. Comparison: Prior chest x-ray of 05/06/18. Heart size is slightly enlarged. Increased pulmonary vessels are seen. Scarring is noted within the left midlung. Surgical clips are seen along the right lateral chest wall. Incidental bilateral breast prosthesis. Bony structures are osteopenic. Minimal scoliosis is noted within the spine. Impression: 1. Stable findings from prior chest x-ray. Nothing acute is definitely appreciated. Diagnostic code #3
== END 2018-05-09 21:35 ==
LOC: JD.ED 17:04
DX: A41.9 Sepsis, unspecified organism (principal); I95.9 Hypotension, unspecified; D69.6 Thrombocytopenia, unspecified; N39.0 Urinary tract infection, site not specified; E78.00 Pure hypercholesterolemia, unspecified; K21.9 Gastro-esophageal reflux disease without esophagitis; Z88.8 Allergy status to other drugs, medicaments and biological substances; Z79.899 Other long term (current) drug therapy
CPT/HCPCS: 36415; 36430; 71045; 80053; 83605; 85610; 85730; 86140; 86850; 86900; 86901; 86922; 87040; 96365; 96367; 96375; 99285; A9270; J0692; J1956; J3370; J7040; J7050; P9016; P9047; 99284